=== PATIENT | female | born 1985 | race Hispanic/Latino ===

== ENCOUNTER → 2020-01-04 | Outpatient (CLI) | payer OTHER ==
[~2020-01-04] MED LIST: ACETAMINOPHEN 325 MG/10 ML UDC ONE; ACETAMINOPHEN/CODEINE 300MG - 30MG TAB ONE; PANTOPRAZOLE SOD 40 MG TABEC PO ONE
[2020-01-04 11:18] LABS: HEMOGLOBIN 12.2 g/dL (12.0-16.0)
[2020-01-04 11:27] LABS: INR 0.99; PROTHROMBIN TIME 13.7 seconds (11.9-14.5)
[2020-01-04 11:28] LABS: PARTIAL THROMBOPLASTIN TIME 27.4 seconds (23.8-35.5)
--- NOTE | 2020-01-04 13:32 | Diagnostic Imaging Report ---
PROCEDURE: Lumbar puncture Procedural Personnel Attending physician(s): Padma Whitehead MD Fellow physician(s): None Resident physician(s): None Advanced practice provider(s): None Pre-procedure diagnosis: Pseudotumor cerebri Post-procedure diagnosis: Same Indication: Headache Additional clinical history: None Complications: No immediate complications. IMPRESSION: Fluoroscopically guided lumbar puncture. Opening pressure of 17 mmHg. Fluid removed (total 30cc CSF) and sent for further analysis. PROCEDURE SUMMARY: - Fluoroscopically guided lumbar puncture at L3-4. - Opening pressure measured at 17 mmHg - 30cc CSF removed. - Closing pressure 4mmHg PROCEDURE DETAILS: Pre-procedure Consent: Informed consent for the procedure including risks, benefits and alternatives was obtained and time-out was performed prior to the procedure. Preparation: The site was prepared and draped using maximal sterile barrier technique including cutaneous antisepsis. Anesthesia/sedation Level of anesthesia/sedation: Local 1% lidocaine Lumbar Puncture [employer] images were obtained. Under image guidance and via a translaminar approach, a needle was advanced to the thecal space. Opening pressure was measured and CSF was obtained for further analysis. Target level: L3-4 Radiation Dose Fluoroscopy time (minutes): 0.7 Reference air kerma (mGy): 6.7 Additional Details Additional description of procedure: None Equipment details: None Specimens removed: CSF sent for labs. Estimated blood loss (mL): Less than 10 Attestation Signer name: Padma Whitehead MD I attest that I was present for the entire procedure. I reviewed the stored images and agree with the report as written. Signed by: Padma Whitehead MD on 01/04/2020 1:30 PM
[2020-01-04 14:50] LABS: TOTAL PROTEIN,CSF 20.5 mg/dL (15-40)
[2020-01-04 16:45] LABS: APPEARANCE,CSF CLEAR (CLEAR)
[2020-01-04 16:46] LABS: COLOR,CSF COLORLESS (COLORLESS); TUBE NUMBER 3; WHITE BLOOD CELL,CSF 1 cells/uL (0-5)
== END ==
LOC: DX 10:53
PROVIDERS: ATTEND Psychiatry & Neurology Neurology
DX: G93.2 Benign intracranial hypertension (principal)
CPT/HCPCS: 36415; 62328; 77003; 81025; 82945; 84157; 85014; 85049; 85610; 85730; 89051; S0164

== ENCOUNTER 2021-02-21 12:30 | Emergency (ER) | payer OTHER ==
[~2021-02-21] VITALS: Ht 157.5 cm; Wt 90.0 kg
[~2021-02-21 12:30] MED LIST changes: -ACETAMINOPHEN 325 MG/10 ML UDC ONE; -ACETAMINOPHEN/CODEINE 300MG - 30MG TAB ONE; +AMBIEN10 MG PO; +CLONAZEPAM0.5 MG PO; +GABAPENTIN300 MG PO; +LEVOTHYROXINE50 MCG PO; -PANTOPRAZOLE SOD 40 MG TABEC PO ONE; +ROPINIROLE HCL1 MG PO
[2021-02-21] MEDS ORDERED: KETOROLAC TROMETHAMINE 30 MG/ML VIAL IV STA (13:01)
[2021-02-21] MEDS ORDERED: ONDANSETRON HCL INJ 2MG/ML 2ML 2 MG/ML VIAL IV STA (13:01)
[2021-02-21] MEDS ORDERED: SODIUM CHLORIDE 0.9% 1000ML 1,000 ML IV SCH (13:15)
[2021-02-21] MEDS ORDERED: IOPAMIDOL 370 MG/ML 200 ML INFUS..BTL INJ ONE (13:20)
[2021-02-21] MEDS ORDERED: SODIUM CHLORIDE 0.9% 50ML 50 ML ONE (13:20)
[2021-02-21] MEDS ORDERED: KETOROLAC TROMETHAMINE 30 MG/ML VIAL ONE (13:32)
[2021-02-21] MEDS ORDERED: ONDANSETRON HCL INJ 2MG/ML 2ML 2 MG/ML VIAL ONE (13:32)
[2021-02-21] MEDS ORDERED: SODIUM CHLORIDE 0.9% 1000ML 1,000 ML ONE (13:33)
[2021-02-21] MEDS ORDERED: MORPHINE SULFATE INJ 4 MG/ML INJ 1ML IV ONE (14:15)
[2021-02-21] MEDS ORDERED: MORPHINE SULFATE INJ 4 MG/ML INJ 1ML ONE (14:32)
[2021-02-21] MEDS ORDERED: ONDANSETRON ODT4 MG PO (15:12)
[2021-02-21] MEDS ORDERED: ULTRAM50 MG PO (15:14)
== END 2021-02-21 15:42 | disposition home or self-care (01) ==
LOC: FSED 13:05
DX: R10.11 Right upper quadrant pain (principal); Z98.84 Bariatric surgery status; I10 Essential (primary) hypertension; E03.9 Hypothyroidism, unspecified; F41.9 Anxiety disorder, unspecified; G93.5 Compression of brain
CPT/HCPCS: 74177; 80048; 80076; 81003; 81025; 85025; 96374; 96375; 96376; 99284; J1885; J2270; J2405; J7030; Q9967

== ENCOUNTER 2021-03-21 17:25 | Inpatient (IN) | payer OTHER ==
[~2021-03-21] VITALS: Ht 157.5 cm; Wt 91.4 kg
[~2021-03-21 17:25] MED LIST changes: +ONDANSETRON ODT4 MG PO; +ULTRAM50 MG PO
[2021-03-21] MEDS ORDERED: KETOROLAC TROMETHAMINE 30 MG/ML VIAL IV STA (17:49)
[2021-03-21] MEDS ORDERED: CEFEPIME HCL 1GM 1 GM in SODIUM CHLORIDE 0.9% 50ML 50 ML IV ONE (18:00)
[2021-03-21] MEDS ORDERED: CEFEPIME HCL 1 GM VIAL IV ONE (18:00)
[2021-03-21] MEDS ORDERED: ACETAMINOPHEN 325 MG TAB PO ONE (18:00)
[2021-03-21] MEDS ORDERED: SODIUM CHLORIDE 0.9% 1000ML 1,000 ML IV ONE (18:00)
[2021-03-21 18:01] LABS: BASOPHILS # (AUTO) 0.1 (0.0-0.1); BASOPHILS % 0.6 % (0.0-1.0); EOSINOPHILS # (AUTO) 0.3 (0.0-0.4); EOSINOPHILS % 2.7 % (0.0-6.0); HEMATOCRIT 34.7 % (34.2-44.1); LYMPHOCYTES # (AUTO) 3.1 (1.0-3.2); LYMPHOCYTES % 24.3 % (18.0-39.1); MEAN CORPUSCULAR HEMOGLOBIN 24.8 pg (28-32); MEAN CORPUSCULAR HGB CONC 31.7 g/dL (31-35); MEAN CORPUSCULAR VOLUME 78.3 fL (81-99); MONOCYTES # (AUTO) 1.1 (0.2-0.8); MONOCYTES % 8.5 % (4.4-11.3); NEUTROPHILS % 63.4 % (38.7-80.0); PLATELET COUNT 444 x10e3/uL (140-360); RED BLOOD COUNT 4.43 x10e6/uL (3.6-5.1); RED CELL DISTRIBUTION WIDTH 15.2 % (11.7-14.4)
[2021-03-21 18:25] LABS: ALANINE AMINOTRANSFERASE 78 IU/L (0-55); ALBUMIN 3.9 g/dL (3.5-5.0); ALBUMIN/GLOBULIN RATIO 1.1 (0.8-2.0); ALKALINE PHOSPHATASE 160 IU/L (40-150); BLOOD UREA NITROGEN 15 mg/dL (7-26); BUN/CREATININE RATIO 19 (6-25); CALCIUM 8.6 mg/dL (8.4-10.2); CARBON DIOXIDE 21 mmol/L (22-29); CHLORIDE 105 mmol/L (98-107); CREATININE, SERUM 0.77 mg/dL (0.57-1.11); EST GLOMERULAR FILTRATION RATE > 60 ML/MIN (60-); GLUCOSE 91 mg/dL (74-118); SODIUM 136 mmol/L (136-145)
[2021-03-21] MEDS ORDERED: ONDANSETRON HCL INJ 2MG/ML 2ML 2 MG/ML VIAL IV STA (18:30)
[2021-03-21] MEDS ORDERED: MORPHINE SULFATE INJ 4 MG/ML INJ 1ML IV STA (18:45)
[2021-03-21] MEDS ORDERED: IOPAMIDOL 370 MG/ML 200 ML INFUS..BTL INJ ONE (18:55)
[2021-03-21] MEDS ORDERED: SODIUM CHLORIDE 0.9% 50ML 50 ML ONE (18:55)
[2021-03-21] MEDS ORDERED: ACETAMINOPHEN 325 MG TAB PO PRN (20:45)
[2021-03-21] MEDS ORDERED: ONDANSETRON HCL INJ 2MG/ML 2ML 2 MG/ML VIAL IV PRN (20:45)
[2021-03-21] MEDS ORDERED: MORPHINE SULFATE INJ 4 MG/ML INJ 1ML IV PRN (21:30)
[2021-03-21] MEDS ORDERED: SODIUM CHLORIDE 0.9% 250ML 250 ML ONE (21:54)
[2021-03-21 21:55] VITALS: BP 118/83
[2021-03-21 22:00] VITALS: BP 118/83
[2021-03-21] MEDS ORDERED: CEFEPIME HCL 1 GM VIAL IV SCH (22:00)
[2021-03-21] MEDS: VANCOMYCIN 1GM/NS 250 ML 250 ML IV SCH (22:00)
[2021-03-21] MEDS ORDERED: ZOLPIDEM TARTRATE 5 MG TAB PO PRN (22:30)
[2021-03-21] MEDS ORDERED: ROPINIROLE HCL 2 MG TAB PO SCH (22:45)
[2021-03-21 23:07] LABS: CLARITY,URINE CLEAR (CLEAR); COLOR,URINE YELLOW (YELLOW)
[2021-03-21 23:08] LABS: KETONES,URINE NEGATIVE (NEGATIVE); LEUKOCYTE ESTERASE ,URINE NEGATIVE (NEGATIVE); NITRITE,URINE NEGATIVE (NEGATIVE); PROTEIN,URINE DIPSTICK NEGATIVE (NEGATIVE); URINE UROBILINOGEN 0.2 mg/dL (0.2 - 1)
[2021-03-21] MEDS: SODIUM CHLORIDE 0.9% 1000ML 1,000 ML IV SCH (23:08)
[2021-03-21] MEDS: HYDROMORPHONE 1MG/1ML INJ IV PRN (23:11)
[2021-03-21 23:14] LABS: BACTERIA,URINE RARE /HPF; EPITHELIAL CELLS,URINE MODERATE /LPF; RBC,URINE 0-5 /HPF (0-5); WBC,URINE (MAN) 0-5 /HPF (0-5)
[2021-03-22] VITALS (9 sets, daily range): BP systolic 88–114; BP diastolic 54–75
[2021-03-22] MEDS: ZOLPIDEM TARTRATE 10 MG TAB PO PRN (01:30)
[2021-03-22] MEDS: HYDROMORPHONE 1MG/1ML INJ IV PRN ×4 (03:54→19:52)
[2021-03-22 05:04] LABS: BASOPHILS # (AUTO) 0.1 (0.0-0.1); BASOPHILS % 0.6 % (0.0-1.0); EOSINOPHILS # (AUTO) 0.5 (0.0-0.4); EOSINOPHILS % 5.9 % (0.0-6.0); HEMATOCRIT 31.2 % (34.2-44.1); HEMOGLOBIN 9.9 g/dL (12.0-16.0); LYMPHOCYTES # (AUTO) 2.8 (1.0-3.2); LYMPHOCYTES % 34.2 % (18.0-39.1); MEAN CORPUSCULAR HEMOGLOBIN 25.1 pg (28-32); MEAN CORPUSCULAR HGB CONC 31.7 g/dL (31-35); MEAN CORPUSCULAR VOLUME 79.2 fL (81-99); MONOCYTES # (AUTO) 0.6 (0.2-0.8); MONOCYTES % 7.5 % (4.4-11.3); NEUTROPHILS # (AUTO) 4.2 (2.1-6.9); NEUTROPHILS % 51.6 % (38.7-80.0); PLATELET COUNT 355 x10e3/uL (140-360); RED BLOOD COUNT 3.94 x10e6/uL (3.6-5.1); RED CELL DISTRIBUTION WIDTH 15.5 % (11.7-14.4)
[2021-03-22 05:25] LABS: ALANINE AMINOTRANSFERASE 57 IU/L (0-55); ALBUMIN 3.2 g/dL (3.5-5.0); ALBUMIN/GLOBULIN RATIO 1.1 (0.8-2.0); ALKALINE PHOSPHATASE 126 IU/L (40-150); ANION GAP 14.8 mmol/L (8-16); BLOOD UREA NITROGEN 13 mg/dL (7-26); BUN/CREATININE RATIO 18 (6-25); CARBON DIOXIDE 20 mmol/L (22-29); CHLORIDE 109 mmol/L (98-107); CREATININE, SERUM 0.74 mg/dL (0.57-1.11); EST GLOMERULAR FILTRATION RATE > 60 ML/MIN (60-); GLUCOSE 95 mg/dL (74-118); POTASSIUM 3.8 mmol/L (3.5-5.1); SODIUM 140 mmol/L (136-145)
[2021-03-22] MEDS: CEFEPIME HCL 1GM 1 GM in SODIUM CHLORIDE 0.9% 50ML 50 ML IV SCH ×3 (06:26→22:52)
[2021-03-22] MEDS: VANCOMYCIN 1GM/NS 250 ML 250 ML IV SCH ×2 (09:28→21:00)
[2021-03-22] MEDS: KETOROLAC TROMETHAMINE 30 MG/ML VIAL IV SCH ×3 (09:30→18:00)
[2021-03-22] MEDS ORDERED: CLONAZEPAM 0.5 MG TAB PO PRN (11:00)
[2021-03-22 11:22] LABS: BODY FLUID APPEARANCE TURBID; BODY FLUID COLOR RED; BODY FLUID TYPE SYNOVIAL
[2021-03-22 11:23] LABS: WBC,BODY FLUID 1540 cells/uL
[2021-03-22 12:46] LABS: EOSINOPHILS,BODY FLUID 8 %; LYMPHOCYTES,BODY FLUID 17 %; MONO/MACROPHG,BODY FLUID 8 %; NEUTROPHILS,BODY FLUID 67 %
[2021-03-22] MEDS: CLONAZEPAM 0.5 MG TAB PO PRN (13:38)
[2021-03-22] MEDS: GABAPENTIN 300 MG CAP PO SCH ×2 (15:15→21:00)
[2021-03-22] MEDS ORDERED: ROPINIROLE HCL 1 MG TAB PO SCH (21:00)
[2021-03-22] MEDS: ROPINIROLE HCL 2 MG TAB PO SCH (21:00)
[2021-03-22] MEDS: SODIUM CHLORIDE 0.9% 1000ML 1,000 ML IV SCH (22:52)
[2021-03-23] VITALS (8 sets, daily range): BP systolic 81–119; BP diastolic 61–85
[2021-03-23] MEDS: HYDROMORPHONE 1MG/1ML INJ IV PRN ×2 (02:15→06:15)
[2021-03-23] MEDS: CEFEPIME HCL 1GM 1 GM in SODIUM CHLORIDE 0.9% 50ML 50 ML IV SCH ×3 (05:25→22:30)
[2021-03-23] MEDS: KETOROLAC TROMETHAMINE 30 MG/ML VIAL IV SCH ×2 (05:26)
[2021-03-23] MEDS: LEVOTHYROXINE SODIUM 50 MCG TAB PO SCH (05:55)
[2021-03-23 06:33] LABS: BASOPHILS # (AUTO) 0.1 (0.0-0.1); BASOPHILS % 0.4 % (0.0-1.0); EOSINOPHILS # (AUTO) 0.4 (0.0-0.4); EOSINOPHILS % 3.5 % (0.0-6.0); HEMATOCRIT 32.9 % (34.2-44.1); HEMOGLOBIN 10.3 g/dL (12.0-16.0); LYMPHOCYTES # (AUTO) 2.6 (1.0-3.2); LYMPHOCYTES % 20.3 % (18.0-39.1); MEAN CORPUSCULAR HEMOGLOBIN 25.1 pg (28-32); MEAN CORPUSCULAR HGB CONC 31.3 g/dL (31-35); MONOCYTES # (AUTO) 0.6 (0.2-0.8); MONOCYTES % 5.1 % (4.4-11.3); NEUTROPHILS # (AUTO) 8.8 (2.1-6.9); NEUTROPHILS % 70.3 % (38.7-80.0); PLATELET COUNT 304 x10e3/uL (140-360); RED BLOOD COUNT 4.11 x10e6/uL (3.6-5.1)
[2021-03-23 06:56] LABS: ANION GAP 15.3 mmol/L (8-16); BLOOD UREA NITROGEN 10 mg/dL (7-26); BUN/CREATININE RATIO 15 (6-25); CALCIUM 8.4 mg/dL (8.4-10.2); CARBON DIOXIDE 19 mmol/L (22-29); CHLORIDE 110 mmol/L (98-107); CREATININE, SERUM 0.67 mg/dL (0.57-1.11); EST GLOMERULAR FILTRATION RATE > 60 ML/MIN (60-); GLUCOSE 90 mg/dL (74-118); POTASSIUM 4.3 mmol/L (3.5-5.1); SODIUM 140 mmol/L (136-145)
[2021-03-23] MEDS ORDERED: KETOROLAC TROMETHAMINE 30 MG/ML VIAL IV PRN (08:00)
[2021-03-23] MEDS: GABAPENTIN 300 MG CAP PO SCH ×3 (09:11→21:15)
[2021-03-23] MEDS: VANCOMYCIN 1GM/NS 250 ML 250 ML IV SCH ×2 (09:11→21:15)
[2021-03-23] MEDS: MORPHINE SULFATE INJ 2 MG/ML SYR IV PRN ×2 (12:08→18:00)
[2021-03-23] MEDS: CLONAZEPAM 0.5 MG TAB PO PRN (12:23)
[2021-03-23] MEDS: HYDROCODONE/APAP 5MG-325MG TAB PO PRN (21:15)
[2021-03-23] MEDS: ROPINIROLE HCL 2 MG TAB PO SCH (21:15)
[2021-03-24] VITALS: BP 109/68
[2021-03-24] MEDS: MORPHINE SULFATE INJ 2 MG/ML SYR IV PRN ×3 (00:20→12:36)
[2021-03-24] MEDS: ZOLPIDEM TARTRATE 10 MG TAB PO PRN (01:45)
[2021-03-24] MEDS: CLONAZEPAM 0.5 MG TAB PO PRN (01:45)
[2021-03-24] MEDS: HYDROCODONE/APAP 5MG-325MG TAB PO PRN ×2 (03:45→09:41)
[2021-03-24 04:00] VITALS: BP 105/73
[2021-03-24 06:15] LABS: BASOPHILS % 0.5 % (0.0-1.0); EOSINOPHILS # (AUTO) 0.5 (0.0-0.4); EOSINOPHILS % 5.8 % (0.0-6.0); HEMATOCRIT 30.3 % (34.2-44.1); HEMOGLOBIN 9.4 g/dL (12.0-16.0); LYMPHOCYTES # (AUTO) 2.7 (1.0-3.2); LYMPHOCYTES % 32.1 % (18.0-39.1); MEAN CORPUSCULAR HEMOGLOBIN 25.1 pg (28-32); MEAN CORPUSCULAR VOLUME 80.8 fL (81-99); MONOCYTES # (AUTO) 0.8 (0.2-0.8); MONOCYTES % 9.7 % (4.4-11.3); NEUTROPHILS # (AUTO) 4.3 (2.1-6.9); NEUTROPHILS % 51.5 % (38.7-80.0); PLATELET COUNT 362 x10e3/uL (140-360); RED BLOOD COUNT 3.75 x10e6/uL (3.6-5.1); RED CELL DISTRIBUTION WIDTH 16.1 % (11.7-14.4)
[2021-03-24] MEDS: CEFEPIME HCL 1GM 1 GM in SODIUM CHLORIDE 0.9% 50ML 50 ML IV SCH ×2 (06:30→13:51)
[2021-03-24] MEDS: LEVOTHYROXINE SODIUM 50 MCG TAB PO SCH (06:30)
[2021-03-24 06:36] LABS: ANION GAP 9.8 mmol/L (8-16); BLOOD UREA NITROGEN 11 mg/dL (7-26); BUN/CREATININE RATIO 17 (6-25); CALCIUM 7.8 mg/dL (8.4-10.2); CARBON DIOXIDE 22 mmol/L (22-29); CHLORIDE 113 mmol/L (98-107); CREATININE, SERUM 0.63 mg/dL (0.57-1.11); EST GLOMERULAR FILTRATION RATE > 60 ML/MIN (60-); GLUCOSE 84 mg/dL (74-118); POTASSIUM 3.8 mmol/L (3.5-5.1); SODIUM 141 mmol/L (136-145)
[2021-03-24 08:16] VITALS: BP 116/78
[2021-03-24 09:06] VITALS: BP 116/78
[2021-03-24] MEDS: GABAPENTIN 300 MG CAP PO SCH (09:40)
[2021-03-24] MEDS: VANCOMYCIN 1GM/NS 250 ML 250 ML IV SCH (09:40)
[2021-03-24 12:12] VITALS: BP 115/72
[2021-03-24] MEDS ORDERED: BACTRIM DS TAB1 EACH PO (12:40)
[2021-03-24] MEDS ORDERED: TYLENOL # 31 EA PO ×2 (12:40→12:42)
== END 2021-03-24 14:45 | disposition home or self-care (01) | DRG 558 ==
LOC: ER 17:49 → ERHOLD 20:34 → MED/SURG3 21:28 → OBSVTOIN 03-22 09:19
PROVIDERS: ADMIT Internal Medicine; ATTEND Internal Medicine
PROC: 0R9L3ZX Drainage of Right Elbow Joint, Percutaneous Approach, Diagnostic (ICD-10-PCS; principal; 2021-03-22)
DX: M71.121 Other infective bursitis, right elbow (principal); L03.113 Cellulitis of right upper limb; I10 Essential (primary) hypertension; E03.9 Hypothyroidism, unspecified; F41.9 Anxiety disorder, unspecified; Z88.8 Allergy status to other drugs, medicaments and biological substances; G25.81 Restless legs syndrome; F32.9 Major depressive disorder, single episode, unspecified; E66.9 Obesity, unspecified; Z68.36 Body mass index [BMI] 36.0-36.9, adult; Z83.3 Family history of diabetes mellitus; Z84.89 Family history of other specified conditions; Z72.0 Tobacco use; Z20.822 Contact with and (suspected) exposure to COVID-19
CPT/HCPCS: 36415; 71045; 80048; 80053; 80202; 81001; 83605; 84702; 85025; 85651; 86140; 87040; 87070; 87205; 89051; 99284; G0378; J0692; J1170; J1885; J2270; J2405; J3370; J7030; J7050; Q9967; U0002

== ENCOUNTER 2021-03-25 20:01 | Observation (INO) | payer OTHER ==
[~2021-03-25] VITALS: Ht 157.5 cm; Wt 93.0 kg
[~2021-03-25 20:01] MED LIST changes: +BACTRIM DS TAB1 EACH PO; +TYLENOL # 31 EA PO
[2021-03-25 21:51] LABS: BASOPHILS # (AUTO) 0.1 (0.0-0.1); BASOPHILS % 0.5 % (0.0-1.0); EOSINOPHILS # (AUTO) 0.5 (0.0-0.4); EOSINOPHILS % 3.1 % (0.0-6.0); HEMATOCRIT 33.6 % (34.2-44.1); HEMOGLOBIN 10.4 g/dL (12.0-16.0); LYMPHOCYTES # (AUTO) 2.6 (1.0-3.2); LYMPHOCYTES % 16.6 % (18.0-39.1); MEAN CORPUSCULAR VOLUME 80.8 fL (81-99); MONOCYTES # (AUTO) 1.2 (0.2-0.8); MONOCYTES % 7.8 % (4.4-11.3); NEUTROPHILS # (AUTO) 11.1 (2.1-6.9); NEUTROPHILS % 71.6 % (38.7-80.0); PLATELET COUNT 415 x10e3/uL (140-360); RED BLOOD COUNT 4.16 x10e6/uL (3.6-5.1)
[2021-03-25 22:05] LABS: ALANINE AMINOTRANSFERASE 36 IU/L (0-55); ALBUMIN 3.6 g/dL (3.5-5.0); ALBUMIN/GLOBULIN RATIO 1.1 (0.8-2.0); ALKALINE PHOSPHATASE 121 IU/L (40-150); ANION GAP 14.5 mmol/L (8-16); BLOOD UREA NITROGEN 10 mg/dL (7-26); BUN/CREATININE RATIO 13 (6-25); CALCIUM 8.7 mg/dL (8.4-10.2); CARBON DIOXIDE 25 mmol/L (22-29); CHLORIDE 102 mmol/L (98-107); EST GLOMERULAR FILTRATION RATE > 60 ML/MIN (60-); GLUCOSE 88 mg/dL (74-118); POTASSIUM 4.5 mmol/L (3.5-5.1); SODIUM 137 mmol/L (136-145)
[2021-03-25] MEDS ORDERED: VANCOMYCIN 1GM/NS 250 ML 250 ML IV STA (22:22)
[2021-03-25] MEDS ORDERED: CEFEPIME HCL 1GM 1 GM in SODIUM CHLORIDE 0.9% 50ML 50 ML IV ONE (22:30)
[2021-03-25] MEDS ORDERED: CEFEPIME HCL 1 GM VIAL IV SCH (22:30)
[2021-03-25] MEDS ORDERED: SODIUM CHLORIDE 0.9% 1000ML 1,000 ML IV SCH (22:30)
[2021-03-25 22:44] LABS: CREATINE KINASE 542 IU/L (29-168)
[2021-03-25] MEDS ORDERED: ACETAMINOPHEN 325 MG TAB ONE (23:15)
[2021-03-26] MEDS ORDERED: TRAMADOL HCL 50 MG TAB PO ONE (01:00)
[2021-03-26] MEDS ORDERED: ONDANSETRON HCL INJ 2MG/ML 2ML 2 MG/ML VIAL IV STA (02:11)
[2021-03-26] MEDS ORDERED: MORPHINE SULFATE INJ 4 MG/ML INJ 1ML IV STA (02:17)
[2021-03-26 03:28] LABS: AMPHETAMINES SCREEN,URINE NEGATIVE (NEGATIVE); BENZODIAZEPINES SCREEN,URINE POSITIVE (NEGATIVE); PHENCYCLIDINE SCREEN,URINE NEGATIVE (NEGATIVE)
[2021-03-26 06:39] LABS: BASOPHILS # (AUTO) 0.1 (0.0-0.1); BASOPHILS % 0.5 % (0.0-1.0); EOSINOPHILS # (AUTO) 0.7 (0.0-0.4); EOSINOPHILS % 6.3 % (0.0-6.0); HEMATOCRIT 31.5 % (34.2-44.1); HEMOGLOBIN 9.6 g/dL (12.0-16.0); LYMPHOCYTES # (AUTO) 3.6 (1.0-3.2); LYMPHOCYTES % 32.3 % (18.0-39.1); MEAN CORPUSCULAR HEMOGLOBIN 24.9 pg (28-32); MEAN CORPUSCULAR HGB CONC 30.5 g/dL (31-35); MEAN CORPUSCULAR VOLUME 81.6 fL (81-99); MONOCYTES # (AUTO) 0.8 (0.2-0.8); MONOCYTES % 6.9 % (4.4-11.3); NEUTROPHILS # (AUTO) 5.9 (2.1-6.9); NEUTROPHILS % 53.6 % (38.7-80.0); PLATELET COUNT 393 x10e3/uL (140-360); RED BLOOD COUNT 3.86 x10e6/uL (3.6-5.1); RED CELL DISTRIBUTION WIDTH 16.1 % (11.7-14.4)
[2021-03-26] MEDS ORDERED: SODIUM CHLORIDE 0.9% 1000ML 1,000 ML IV ONE (06:45)
[2021-03-26 06:57] LABS: CREATINE KINASE 452 IU/L (29-168)
[2021-03-26] MEDS ORDERED: ACETAMINOPHEN 325 MG TAB PO PRN (07:15)
[2021-03-26] MEDS ORDERED: HYDRALAZINE HCL 20 MG/ML VIAL IV PRN (07:15)
[2021-03-26] MEDS ORDERED: ONDANSETRON HCL INJ 2MG/ML 2ML 2 MG/ML VIAL IV PRN (07:15)
[2021-03-26] MEDS ORDERED: TRAMADOL HCL 50 MG TAB PO PRN (07:15)
[2021-03-26 07:21] LABS: ALANINE AMINOTRANSFERASE 33 IU/L (0-55); ALBUMIN 3.2 g/dL (3.5-5.0); ALKALINE PHOSPHATASE 109 IU/L (40-150); ANION GAP 12.7 mmol/L (8-16); BLOOD UREA NITROGEN 10 mg/dL (7-26); BUN/CREATININE RATIO 12 (6-25); CALCIUM 8.8 mg/dL (8.4-10.2); CARBON DIOXIDE 24 mmol/L (22-29); CHLORIDE 110 mmol/L (98-107); CREATININE, SERUM 0.83 mg/dL (0.57-1.11); EST GLOMERULAR FILTRATION RATE > 60 ML/MIN (60-); GLUCOSE 92 mg/dL (74-118); POTASSIUM 5.7 mmol/L (3.5-5.1); SODIUM 141 mmol/L (136-145)
[2021-03-26] MEDS: LEVOTHYROXINE SODIUM 50 MCG TAB PO SCH (08:03)
[2021-03-26] MEDS: GABAPENTIN 300 MG CAP PO SCH ×3 (08:03→20:49)
[2021-03-26] MEDS: SODIUM CHLORIDE 0.9% 1000ML 1,000 ML IV SCH ×3 (10:33→23:05)
[2021-03-26] MEDS: CEFEPIME HCL 1GM 1 GM in SODIUM CHLORIDE 0.9% 50ML 50 ML IV SCH ×2 (12:00→23:04)
[2021-03-26] MEDS ORDERED: HYDROMORPHONE 1MG/1ML INJ IV PRN (12:15)
[2021-03-26 13:16] VITALS: BP 102/69
[2021-03-26 13:19] VITALS: BP 102/69
[2021-03-26] MEDS ORDERED: TIZANIDINE HCL4 MG PO (13:53)
[2021-03-26] MEDS ORDERED: TRILEPTAL300 MG PO (13:53)
[2021-03-26 15:14] LABS: CREATINE KINASE 444 IU/L (29-168)
[2021-03-26 16:17] VITALS: BP 113/70
[2021-03-26] MEDS ORDERED: HYDROCORTISONE 1% CREAM 30 GM TUBE TOP PRN (17:30)
[2021-03-26] MEDS: ACETAMINOPHEN/CODEINE 300MG - 30MG TAB PO PRN (19:47)
[2021-03-26 20:00] VITALS: BP 114/71
[2021-03-26 20:30] VITALS: BP 114/71
[2021-03-26] MEDS ORDERED: CLONAZEPAM 0.5 MG TAB PO PRN (21:00)
[2021-03-26] MEDS ORDERED: ROPINIROLE HCL 1 MG TAB PO SCH (21:00)
[2021-03-26] MEDS ORDERED: ZOLPIDEM TARTRATE 10 MG TAB PO SCH (21:00)
[2021-03-27] VITALS: BP 111/72
[2021-03-27 04:00] VITALS: BP 116/70
[2021-03-27] MEDS: ACETAMINOPHEN/CODEINE 300MG - 30MG TAB PO PRN ×2 (05:05→11:49)
[2021-03-27] MEDS: LEVOTHYROXINE SODIUM 50 MCG TAB PO SCH (05:19)
[2021-03-27 05:30] LABS: BASOPHILS % 0.6 % (0.0-1.0); EOSINOPHILS # (AUTO) 0.7 (0.0-0.4); EOSINOPHILS % 9.3 % (0.0-6.0); HEMOGLOBIN 9.6 g/dL (12.0-16.0); LYMPHOCYTES # (AUTO) 2.1 (1.0-3.2); LYMPHOCYTES % 29.7 % (18.0-39.1); MEAN CORPUSCULAR HEMOGLOBIN 24.6 pg (28-32); MEAN CORPUSCULAR VOLUME 79.5 fL (81-99); MONOCYTES # (AUTO) 0.7 (0.2-0.8); MONOCYTES % 9.1 % (4.4-11.3); NEUTROPHILS # (AUTO) 3.7 (2.1-6.9); PLATELET COUNT 357 x10e3/uL (140-360); RED CELL DISTRIBUTION WIDTH 15.9 % (11.7-14.4)
[2021-03-27 06:03] LABS: ALANINE AMINOTRANSFERASE 24 IU/L (0-55); ALKALINE PHOSPHATASE 98 IU/L (40-150); ANION GAP 12.4 mmol/L (8-16); BLOOD UREA NITROGEN 10 mg/dL (7-26); BUN/CREATININE RATIO 15 (6-25); CALCIUM 8.2 mg/dL (8.4-10.2); CARBON DIOXIDE 20 mmol/L (22-29); CHLORIDE 113 mmol/L (98-107); CREATINE KINASE 281 IU/L (29-168); CREATININE, SERUM 0.67 mg/dL (0.57-1.11); EST GLOMERULAR FILTRATION RATE > 60 ML/MIN (60-); GLUCOSE 91 mg/dL (74-118); POTASSIUM 4.4 mmol/L (3.5-5.1); SODIUM 141 mmol/L (136-145)
[2021-03-27 07:51] VITALS: BP 111/74
[2021-03-27 08:44] VITALS: BP 111/74
[2021-03-27] MEDS: GABAPENTIN 300 MG CAP PO SCH (09:09)
[2021-03-27] MEDS ORDERED: DOXYCYCLINE HY100 MG PO (11:35)
[2021-03-27] MEDS ORDERED: CIPRO500 MG PO (11:35)
[2021-03-27] MEDS: CEFEPIME HCL 1GM 1 GM in SODIUM CHLORIDE 0.9% 50ML 50 ML IV SCH (11:47)
[2021-03-27 12:01] VITALS: BP 118/75
[2021-03-27] MEDS ORDERED: TYLENOL PO (12:25)
[2021-03-27] MEDS ORDERED: ONDANSETRON HCL 4 MG ORAL DISINTEGRATING TAB PO PRN (12:30)
== END 2021-03-27 13:10 | disposition home or self-care (01) ==
LOC: ER 20:59 → ERHOLD 22:38 → MED/SURG3 03-26 13:00
PROVIDERS: ADMIT Internal Medicine; ATTEND Internal Medicine
DX: A41.9 Sepsis, unspecified organism (principal); L03.113 Cellulitis of right upper limb; Z20.822 Contact with and (suspected) exposure to COVID-19; E03.9 Hypothyroidism, unspecified; G25.81 Restless legs syndrome; M71.121 Other infective bursitis, right elbow
CPT/HCPCS: 36415 ×3; 71045; 80053 ×3; 80307; 82550 ×3; 82553 ×2; 83605; 84484 ×2; 85025 ×3; 87040; 99284; G0378 ×3; J0692 ×3; J1170; J2270; J2405; J3370; J7030 ×2; U0002

== ENCOUNTER 2021-04-24 21:20 | Emergency (ER) | payer OTHER ==
[~2021-04-24] VITALS: Ht 157.5 cm; Wt 93.0 kg
[~2021-04-24 21:20] MED LIST changes: +CIPRO500 MG PO; +DOXYCYCLINE HY100 MG PO; +TIZANIDINE HCL4 MG PO; +TRILEPTAL300 MG PO; +TYLENOL PO
[2021-04-24] MEDS ORDERED: SODIUM CHLORIDE 0.9% 1000ML 1,000 ML IV ONE (21:45)
[2021-04-24 22:01] LABS: BASOPHILS # (AUTO) 0.1 (0.0-0.1); BASOPHILS % 0.5 % (0.0-1.0); EOSINOPHILS # (AUTO) 0.6 (0.0-0.4); EOSINOPHILS % 5.1 % (0.0-6.0); HEMATOCRIT 33.8 % (34.2-44.1); HEMOGLOBIN 10.6 g/dL (12.0-16.0); LYMPHOCYTES # (AUTO) 2.3 (1.0-3.2); LYMPHOCYTES % 19.2 % (18.0-39.1); MEAN CORPUSCULAR HGB CONC 31.4 g/dL (31-35); MEAN CORPUSCULAR VOLUME 76.5 fL (81-99); MONOCYTES # (AUTO) 0.8 (0.2-0.8); MONOCYTES % 6.7 % (4.4-11.3); NEUTROPHILS # (AUTO) 8.1 (2.1-6.9); NEUTROPHILS % 66.5 % (38.7-80.0); PLATELET COUNT 458 x10e3/uL (140-360); RED BLOOD COUNT 4.42 x10e6/uL (3.6-5.1); RED CELL DISTRIBUTION WIDTH 17.2 % (11.7-14.4)
[2021-04-24 22:17] LABS: ALBUMIN 3.4 g/dL (3.5-5.0); ALBUMIN/GLOBULIN RATIO 0.7 (0.8-2.0); ANION GAP 15.8 mmol/L (8-16); CALCIUM 9.6 mg/dL (8.4-10.2); CREATININE, SERUM 0.83 mg/dL (0.57-1.11); POTASSIUM 3.8 mmol/L (3.5-5.1)
[2021-04-24 22:18] LABS: CLARITY,URINE CLEAR (CLEAR); COLOR,URINE YELLOW (YELLOW); KETONES,URINE 1+ (NEGATIVE); LEUKOCYTE ESTERASE ,URINE NEGATIVE (NEGATIVE); NITRITE,URINE NEGATIVE (NEGATIVE); PROTEIN,URINE DIPSTICK TRACE (NEGATIVE); URINE UROBILINOGEN 1 mg/dL (0.2 - 1)
[2021-04-24 22:34] LABS: BACTERIA,URINE RARE /HPF; EPITHELIAL CELLS,URINE FEW /LPF; RBC,URINE 0-5 /HPF (0-5); WBC,URINE (MAN) 0-5 /HPF (0-5)
[2021-04-24] MEDS ORDERED: TRAMADOL HCL 50 MG TAB PO ONE (23:15)
[2021-04-24] MEDS ORDERED: DOXYCYCLINE HY100 MG PO (23:52)
[2021-04-24] MEDS ORDERED: ULTRAM50 MG PO (23:52)
== END 2021-04-25 00:01 | disposition home or self-care (01) ==
LOC: ER 21:44
DX: R50.9 Fever, unspecified (principal); R06.00 Dyspnea, unspecified; R05 Cough; J18.9 Pneumonia, unspecified organism; Z20.822 Contact with and (suspected) exposure to COVID-19
CPT/HCPCS: 36415; 71045; 80053; 81001; 81025; 83605; 85025; 87040; 99284; J7030; U0002

== ENCOUNTER 2022-02-20 15:50 | Observation (INO) | payer OTHER ==
[~2022-02-20] VITALS: Ht 157.5 cm; Wt 79.4 kg
[2022-02-20] MEDS ORDERED: Morphine 4mg Syringe 4 MG/ML INJ IV STA (16:02)
[2022-02-20] MEDS ORDERED: SODIUM CHLORIDE 0.9% 1000ML 1,000 ML IV STA (16:02)
[2022-02-20] MEDS ORDERED: ONDANSETRON HCL INJ 2MG/ML 2ML 2 MG/ML VIAL IV STA (16:02)
[2022-02-20] MEDS ORDERED: DEXAMETHASONE SOD PHOS 10 MG/1 ML VIAL IV ONE (16:15)
[2022-02-20 16:28] LABS: BASOPHILS # (AUTO) 0.1 (0.0-0.1); BASOPHILS % 0.3 % (0.0-1.0); EOSINOPHILS % 0.1 % (0.0-6.0); HEMATOCRIT 42.1 % (34.2-44.1); HEMOGLOBIN 14.2 g/dL (12.0-16.0); LYMPHOCYTES # (AUTO) 1.6 (1.0-3.2); MEAN CORPUSCULAR HEMOGLOBIN 31.1 pg (28-32); MEAN CORPUSCULAR HGB CONC 33.7 g/dL (31-35); MEAN CORPUSCULAR VOLUME 92.3 fL (81-99); MONOCYTES # (AUTO) 0.3 (0.2-0.8); MONOCYTES % 1.7 % (4.4-11.3); NEUTROPHILS # (AUTO) 12.4 (2.1-6.9); NEUTROPHILS % 86.4 % (38.7-80.0); PLATELET COUNT 395 x10e3/uL (140-360); RED BLOOD COUNT 4.56 x10e6/uL (3.6-5.1); RED CELL DISTRIBUTION WIDTH 14.9 % (11.7-14.4)
[2022-02-20 16:42] LABS: ALBUMIN 3.9 g/dL (3.5-5.0); ALBUMIN/GLOBULIN RATIO 1.1 (0.8-2.0); CALCIUM 8.9 mg/dL (8.4-10.2); CREATININE, SERUM 0.84 mg/dL (0.57-1.11)
[2022-02-20] MEDS ORDERED: ACETAMINOPHEN 325 MG TAB PO ONE (17:45)
[2022-02-20 17:55] LABS: CLARITY,URINE SL CLOUDY (CLEAR); COLOR,URINE STRAW (YELLOW); KETONES,URINE TRACE (NEGATIVE); LEUKOCYTE ESTERASE ,URINE NEGATIVE (NEGATIVE); NITRITE,URINE NEGATIVE (NEGATIVE); PROTEIN,URINE DIPSTICK NEGATIVE (NEGATIVE); URINE UROBILINOGEN 0.2 mg/dL (0.2 - 1)
[2022-02-20 18:08] LABS: AMORPHOUS SEDIMENT,URINE MODERATE (FEW); BACTERIA,URINE MODERATE /HPF; EPITHELIAL CELLS,URINE MODERATE /LPF
[2022-02-20] MEDS ORDERED: Morphine 4mg Syringe 4 MG/ML INJ IV PRN (18:15)
[2022-02-20] MEDS ORDERED: ACETAMINOPHEN 325 MG TAB PO PRN (18:15)
[2022-02-20] MEDS ORDERED: ONDANSETRON HCL INJ 2MG/ML 2ML 2 MG/ML VIAL IV PRN (18:15)
[2022-02-20 18:27] LABS: CREATINE KINASE 67 IU/L (29-168)
[2022-02-20 19:00] VITALS: BP 121/82
[2022-02-20] MEDS ORDERED: VALIUM5 MG PO (19:07)
[2022-02-20] MEDS ORDERED: HYDROCODON-ACE1 EA11 PO (19:07)
[2022-02-20 20:00] VITALS: BP 121/82
[2022-02-20] MEDS ORDERED: LEVOTHYROXINE75 MCG PO (20:04)
[2022-02-20] MEDS ORDERED: ROPINIROLE HCL1 MG PO (20:16)
[2022-02-20] MEDS ORDERED: ONDANSETRON HCL 4 MG ORAL DISINTEGRATING TAB PO PRN (20:30)
[2022-02-20] MEDS ORDERED: HYDROCODONE/APAP 5MG-325MG TAB PO PRN (20:30)
[2022-02-20 21:00] VITALS: BP 121/82
[2022-02-20] MEDS ORDERED: OXCARBAZEPINE 300 MG TAB PO SCH (21:00)
[2022-02-20] MEDS ORDERED: ROPINIROLE HCL 1 MG TAB PO SCH (21:00)
[2022-02-20] MEDS ORDERED: ZOLPIDEM TARTRATE 5 MG TAB PO SCH (21:18)
[2022-02-20] MEDS: SODIUM CHLORIDE 0.9% 1000ML 1,000 ML IV SCH (21:29)
[2022-02-20] MEDS: DIAZEPAM 5 MG TAB PO SCH (21:30)
[2022-02-20] MEDS: GABAPENTIN 300 MG CAP PO SCH (21:30)
[2022-02-20] MEDS: HYDROMORPHONE 1MG/1ML INJ IV PRN (21:30)
[2022-02-20] MEDS: TIZANIDINE HCL 4 MG TAB PO SCH (23:58)
[2022-02-21] VITALS: BP_SYST 121; BP_SYST 165; BP_DIAS 69; BP_DIAS 91
[2022-02-21] MEDS: HYDROMORPHONE 1MG/1ML INJ IV PRN ×2 (01:30→05:30)
[2022-02-21 04:00] VITALS: BP 129/86
[2022-02-21] MEDS: GABAPENTIN 300 MG CAP PO SCH (05:43)
[2022-02-21 05:48] LABS: BASOPHILS % 0.3 % (0.0-1.0); EOSINOPHILS % 0.2 % (0.0-6.0); HEMATOCRIT 35.2 % (34.2-44.1); LYMPHOCYTES # (AUTO) 2.5 (1.0-3.2); LYMPHOCYTES % 23.6 % (18.0-39.1); MEAN CORPUSCULAR HEMOGLOBIN 30.9 pg (28-32); MEAN CORPUSCULAR HGB CONC 33.5 g/dL (31-35); MEAN CORPUSCULAR VOLUME 92.1 fL (81-99); MONOCYTES # (AUTO) 0.7 (0.2-0.8); MONOCYTES % 6.4 % (4.4-11.3); NEUTROPHILS # (AUTO) 7.2 (2.1-6.9); PLATELET COUNT 305 x10e3/uL (140-360); RED BLOOD COUNT 3.82 x10e6/uL (3.6-5.1); RED CELL DISTRIBUTION WIDTH 14.7 % (11.7-14.4)
[2022-02-21 05:59] LABS: HEMOGLOBIN 11.8 g/dL (12.0-16.0)
[2022-02-21] MEDS ORDERED: LEVOTHYROXINE SODIUM 75 MCG TAB PO SCH (06:00)
[2022-02-21] MEDS: SODIUM CHLORIDE 0.9% 1000ML 1,000 ML IV SCH (06:17)
[2022-02-21 06:20] LABS: ALBUMIN/GLOBULIN RATIO 1.2 (0.8-2.0); ANION GAP 10.9 mmol/L (8-16); CALCIUM 7.9 mg/dL (8.4-10.2); CREATININE, SERUM 0.65 mg/dL (0.57-1.11); POTASSIUM 3.9 mmol/L (3.5-5.1)
[2022-02-21 06:50] LABS: CREATINE KINASE 44 IU/L (29-168)
[2022-02-21] MEDS ORDERED: PREDNISONE20 MG PO (08:48)
[2022-02-21 08:49] VITALS: BP 120/81
[2022-02-21] MEDS: DIAZEPAM 5 MG TAB PO SCH (08:50)
[2022-02-21] MEDS: TIZANIDINE HCL 4 MG TAB PO SCH (08:51)
[2022-02-21 09:00] VITALS: BP 120/81
[2022-02-21] MEDS ORDERED: ONDANSETRON HCL 4 MG ORAL DISINTEGRATING TAB PO PRN (10:15)
[2022-02-21] MEDS ORDERED: ROPINIROLE HCL 1 MG TAB PO SCH ×3 (12:00→21:00)
== END 2022-02-21 11:32 | disposition home or self-care (01) ==
LOC: ER 16:33 → ERHOLD 18:07 → MED/SURG2 18:34
PROVIDERS: ADMIT Internal Medicine; ATTEND Internal Medicine
DX: M06.9 Rheumatoid arthritis, unspecified (principal); I10 Essential (primary) hypertension; Z98.84 Bariatric surgery status; Z88.8 Allergy status to other drugs, medicaments and biological substances; E03.9 Hypothyroidism, unspecified; F41.9 Anxiety disorder, unspecified; F32.A Depression, unspecified; Z90.49 Acquired absence of other specified parts of digestive tract; F17.210 Nicotine dependence, cigarettes, uncomplicated; Z83.3 Family history of diabetes mellitus; Z80.9 Family history of malignant neoplasm, unspecified; Z20.822 Contact with and (suspected) exposure to COVID-19
CPT/HCPCS: 36415 ×2; 71045; 71250; 80053 ×2; 81001; 81025; 82550 ×2; 82553 ×2; 83605; 83880; 84484 ×2; 84550; 85025 ×2; 85651; 86141; 86200; 86431; 87040; 94799; 99284; G0378 ×2; J1100; J1170 ×2; J2270; J2405; J2543 ×2; J7030 ×2; U0002

== ENCOUNTER 2022-03-17 13:42 | Inpatient (IN) | payer OTHER ==
[~2022-03-17] VITALS: Ht 157.5 cm; Wt 79.4 kg
[~2022-03-17 13:42] MED LIST changes: +HYDROCODON-ACE1 EA11 PO; +LEVOTHYROXINE75 MCG PO; +PREDNISONE20 MG PO; +VALIUM5 MG PO
[2022-03-17 14:02] LABS: BASOPHILS # (AUTO) 0.1 (0.0-0.1); BASOPHILS % 0.6 % (0.0-1.0); EOSINOPHILS # (AUTO) 0.4 (0.0-0.4); EOSINOPHILS % 4.4 % (0.0-6.0); HEMATOCRIT 41.6 % (34.2-44.1); HEMOGLOBIN 13.5 g/dL (12.0-16.0); LYMPHOCYTES # (AUTO) 3.2 (1.0-3.2); LYMPHOCYTES % 32.9 % (18.0-39.1); MEAN CORPUSCULAR HEMOGLOBIN 30.8 pg (28-32); MEAN CORPUSCULAR HGB CONC 32.5 g/dL (31-35); MONOCYTES # (AUTO) 0.8 (0.2-0.8); MONOCYTES % 7.9 % (4.4-11.3); NEUTROPHILS # (AUTO) 5.2 (2.1-6.9); PLATELET COUNT 326 x10e3/uL (140-360); RED BLOOD COUNT 4.38 x10e6/uL (3.6-5.1); RED CELL DISTRIBUTION WIDTH 14.9 % (11.7-14.4)
[2022-03-17 14:21] LABS: ALBUMIN 3.7 g/dL (3.5-5.0); ALBUMIN/GLOBULIN RATIO 1.2 (0.8-2.0); ANION GAP 13.8 mmol/L (8-16); CALCIUM 8.1 mg/dL (8.4-10.2); CLARITY,URINE SL CLOUDY (CLEAR); COLOR,URINE AMBER (YELLOW); CREATININE, SERUM 0.88 mg/dL (0.57-1.11); KETONES,URINE TRACE (NEGATIVE); LEUKOCYTE ESTERASE ,URINE SMALL (NEGATIVE); NITRITE,URINE NEGATIVE (NEGATIVE); POTASSIUM 3.8 mmol/L (3.5-5.1); PROTEIN,URINE DIPSTICK 1+ (NEGATIVE); URINE UROBILINOGEN 0.2 mg/dL (0.2 - 1)
[2022-03-17 14:34] LABS: BACTERIA,URINE MANY /HPF; EPITHELIAL CELLS,URINE MODERATE /LPF
[2022-03-17] MEDS: Morphine 4mg Syringe 4 MG/ML INJ IV PRN ×2 (18:41→23:10)
[2022-03-17] MEDS: ONDANSETRON HCL INJ 2MG/ML 2ML 2 MG/ML VIAL IV PRN (18:41)
[2022-03-17] MEDS ORDERED: SODIUM CHLORIDE 0.9% 1000ML 1,000 ML ONE (18:42)
[2022-03-17] MEDS ORDERED: ONDANSETRON HCL INJ 2MG/ML 2ML 2 MG/ML VIAL ONE (18:42)
[2022-03-17] MEDS ORDERED: Morphine 4mg Syringe 4 MG/ML INJ ONE (18:42)
[2022-03-17 20:00] VITALS: BP 109/64
[2022-03-17 22:00] VITALS: BP 109/64
[2022-03-17] MEDS ORDERED: HYDROCODON-ACE1 EAC9 PO (22:49)
[2022-03-17] MEDS ORDERED: DICLOFENAC SODI50 MG PO (23:47)
[2022-03-17] MEDS ORDERED: DECADRON4 M1 PO (23:47)
[2022-03-17] MEDS ORDERED: FUROSEMIDE40 MG PO (23:47)
[2022-03-17] MEDS ORDERED: ALPRAZOLAM0.25 MG PO (23:47)
[2022-03-17 23:55] VITALS: BP 109/64
[2022-03-18] VITALS (7 sets, daily range): BP systolic 102–118; BP diastolic 64–83
[2022-03-18] MEDS ORDERED: IBUPROFEN 600 MG TAB PO PRN (00:45)
[2022-03-18] MEDS ORDERED: HYDRALAZINE HCL 20 MG/ML VIAL IV PRN (00:45)
[2022-03-18] MEDS ORDERED: ACETAMINOPHEN 325 MG TAB PO PRN (00:45)
[2022-03-18] MEDS ORDERED: ONDANSETRON HCL 4 MG ORAL DISINTEGRATING TAB PO PRN (00:45)
[2022-03-18] MEDS ORDERED: POLYETHYLENE GLYCOL 3350 17 GM PACK PO PRN (00:45)
[2022-03-18] MEDS ORDERED: ACETAMIN/BUTALBITAL/CAFFEINE TAB PO PRN (01:30)
[2022-03-18] MEDS: Morphine 4mg Syringe 4 MG/ML INJ IV PRN ×5 (04:00→22:31)
[2022-03-18] MEDS: TIZANIDINE HCL 4 MG TAB PO PRN ×2 (04:40→08:43)
[2022-03-18] MEDS: DIAZEPAM 5 MG TAB PO PRN ×2 (04:40→21:40)
[2022-03-18] MEDS ORDERED: SODIUM CHLORIDE 0.9% 250ML 250 ML ONE (05:18)
[2022-03-18] MEDS: LEVOTHYROXINE SODIUM 75 MCG TAB PO SCH (05:51)
[2022-03-18] MEDS: GABAPENTIN 300 MG CAP PO SCH ×3 (05:51→21:40)
[2022-03-18] MEDS ORDERED: LEVOTHYROXINE SODIUM 75 MCG TAB PO SCH (06:00)
[2022-03-18] MEDS: DOCUSATE SODIUM 100 MG CAP PO SCH ×2 (08:25→17:00)
[2022-03-18] MEDS: FUROSEMIDE 40 MG TAB PO SCH (08:26)
[2022-03-18] MEDS: MULTIVITAMINS/MINERALS TAB PO SCH (08:26)
[2022-03-18] MEDS: FAMOTIDINE 20 MG TAB PO SCH ×2 (08:26→17:30)
[2022-03-18] MEDS: ALPRAZOLAM 0.25 MG TAB PO PRN (08:47)
[2022-03-18] MEDS ORDERED: DEXAMETHASONE 4 MG TAB PO SCH (09:00)
[2022-03-18] MEDS ORDERED: TIZANIDINE HCL 4 MG TAB PO SCH (09:00)
[2022-03-18] MEDS ORDERED: DIAZEPAM 5 MG TAB PO SCH (09:00)
[2022-03-18] MEDS: HYDROCODONE/APAP 10MG-325MG TAB PO PRN ×2 (14:30→20:24)
[2022-03-18] MEDS ORDERED: METHYLPREDNISOLONE SOD SUCC 40 MG/ML VIAL 1ML IV ONE (17:30)
[2022-03-18] MEDS: OXCARBAZEPINE 300 MG TAB PO SCH (20:24)
[2022-03-18] MEDS ORDERED: ZOLPIDEM TARTRATE 10 MG TAB PO SCH (21:00)
[2022-03-18] MEDS: METHYLPREDNISOLONE SOD SUCC 125 MG/2ML VIAL IV SCH (21:40)
[2022-03-18] MEDS: ONDANSETRON HCL INJ 2MG/ML 2ML 2 MG/ML VIAL IV PRN (22:30)
[2022-03-19] VITALS (10 sets, daily range): BP systolic 100–115; BP diastolic 59–72
[2022-03-19] MEDS: ZOLPIDEM TARTRATE 10 MG TAB PO SCH ×2 (00:14→23:10)
[2022-03-19] MEDS: TIZANIDINE HCL 4 MG TAB PO PRN (00:15)
[2022-03-19] MEDS: HYDROCODONE/APAP 10MG-325MG TAB PO PRN ×2 (01:48→06:03)
[2022-03-19] MEDS: Morphine 4mg Syringe 4 MG/ML INJ IV PRN ×5 (03:34→23:10)
[2022-03-19] MEDS: LEVOTHYROXINE SODIUM 75 MCG TAB PO SCH (05:50)
[2022-03-19] MEDS: GABAPENTIN 300 MG CAP PO SCH ×3 (05:50→23:05)
[2022-03-19] MEDS: METHYLPREDNISOLONE SOD SUCC 125 MG/2ML VIAL IV SCH ×3 (05:50→23:05)
[2022-03-19 06:01] LABS: BASOPHILS % 0.3 % (0.0-1.0); EOSINOPHILS % 0.3 % (0.0-6.0); HEMATOCRIT 41.8 % (34.2-44.1); HEMOGLOBIN 13.7 g/dL (12.0-16.0); LYMPHOCYTES # (AUTO) 1.5 (1.0-3.2); LYMPHOCYTES % 12.9 % (18.0-39.1); MEAN CORPUSCULAR HEMOGLOBIN 31.1 pg (28-32); MEAN CORPUSCULAR HGB CONC 32.8 g/dL (31-35); MONOCYTES # (AUTO) 0.5 (0.2-0.8); MONOCYTES % 4.6 % (4.4-11.3); NEUTROPHILS # (AUTO) 9.4 (2.1-6.9); NEUTROPHILS % 81.6 % (38.7-80.0); PLATELET COUNT 344 x10e3/uL (140-360); RED CELL DISTRIBUTION WIDTH 14.6 % (11.7-14.4)
[2022-03-19 06:35] LABS: ALBUMIN 3.3 g/dL (3.5-5.0); ANION GAP 11.6 mmol/L (8-16); CALCIUM 8.3 mg/dL (8.4-10.2); CHOL/HDL RATIO 3.7 (3.0-3.6); CREATININE, SERUM 0.75 mg/dL (0.57-1.11); MAGNESIUM 2.1 MG/DL (1.3-2.1); PHOSPHORUS 3.4 MG/DL (2.3-4.7); POTASSIUM 4.6 mmol/L (3.5-5.1)
[2022-03-19 07:01] LABS: THYROID STIMULATING HORMONE 1.175 uIU/mL (0.350-4.940)
[2022-03-19] MEDS: FAMOTIDINE 20 MG TAB PO SCH ×2 (08:20→16:44)
[2022-03-19] MEDS: DOCUSATE SODIUM 100 MG CAP PO SCH ×3 (09:10→20:38)
[2022-03-19] MEDS: FUROSEMIDE 40 MG TAB PO SCH (09:10)
[2022-03-19] MEDS: MULTIVITAMINS/MINERALS TAB PO SCH (09:11)
[2022-03-19] MEDS: ALPRAZOLAM 0.25 MG TAB PO PRN (17:53)
[2022-03-19] MEDS: DIAZEPAM 5 MG TAB PO PRN (20:38)
[2022-03-19] MEDS: OXCARBAZEPINE 300 MG TAB PO SCH (20:38)
[2022-03-20] VITALS: BP 116/73
[2022-03-20] MEDS: HYDROCODONE/APAP 10MG-325MG TAB PO PRN (01:40)
[2022-03-20] MEDS: Morphine 4mg Syringe 4 MG/ML INJ IV PRN ×2 (03:23→11:28)
[2022-03-20] MEDS: ONDANSETRON HCL INJ 2MG/ML 2ML 2 MG/ML VIAL IV PRN (03:23)
[2022-03-20 04:00] VITALS: BP 103/62
[2022-03-20] MEDS: FAMOTIDINE 20 MG TAB PO SCH (05:40)
[2022-03-20] MEDS: LEVOTHYROXINE SODIUM 75 MCG TAB PO SCH (05:40)
[2022-03-20] MEDS: GABAPENTIN 300 MG CAP PO SCH ×2 (05:40→14:11)
[2022-03-20] MEDS: TIZANIDINE HCL 4 MG TAB PO PRN (05:54)
[2022-03-20] MEDS: METHYLPREDNISOLONE SOD SUCC 125 MG/2ML VIAL IV SCH ×2 (07:13→14:11)
[2022-03-20 08:06] VITALS: BP 103/62
[2022-03-20 08:11] VITALS: BP 96/60
[2022-03-20] MEDS ORDERED: POLYETHYLENE GLYCOL 3350 17 GM PACK PO SCH (09:00)
[2022-03-20] MEDS: FUROSEMIDE 40 MG TAB PO SCH (09:28)
[2022-03-20] MEDS: MULTIVITAMINS/MINERALS TAB PO SCH (09:28)
[2022-03-20] MEDS: DOCUSATE SODIUM 100 MG CAP PO SCH (09:28)
[2022-03-20 12:01] VITALS: BP 104/60
[2022-03-20] MEDS ORDERED: CEFUROXIME250 MG PO (13:12)
[2022-03-20] MEDS ORDERED: DECADRON4 M1 PO ×2 (13:16→13:17)
[2022-03-20] MEDS ORDERED: ONDANSETRON HCL INJ 2MG/ML 2ML 2 MG/ML VIAL IV PRN (14:30)
== END 2022-03-20 15:42 | disposition home or self-care (01) | DRG 546 ==
LOC: ER 15:00 → ERHOLD 17:54 → UNDOADMOB 17:54 → ERHOLD 18:05 → ER 18:11 → MED/SURG2 20:15 → OBSVTOIN 03-19 14:47
PROVIDERS: ADMIT Internal Medicine; ATTEND Internal Medicine
DX: M06.9 Rheumatoid arthritis, unspecified (principal); N39.0 Urinary tract infection, site not specified; W19.XXXA Unspecified fall, initial encounter; F41.9 Anxiety disorder, unspecified; E03.9 Hypothyroidism, unspecified; R11.2 Nausea with vomiting, unspecified; B96.1 Klebsiella pneumoniae [K. pneumoniae] as the cause of diseases classified elsewhere; F17.210 Nicotine dependence, cigarettes, uncomplicated; Z98.84 Bariatric surgery status; G47.00 Insomnia, unspecified; Z20.822 Contact with and (suspected) exposure to COVID-19; Z79.899 Other long term (current) drug therapy; G25.81 Restless legs syndrome; M79.7 Fibromyalgia; Z28.311 Partially vaccinated for COVID-19; E66.9 Obesity, unspecified; Z68.32 Body mass index [BMI] 32.0-32.9, adult; M46.92 Unspecified inflammatory spondylopathy, cervical region; E66.8 Other obesity; I10 Essential (primary) hypertension; F32.A Depression, unspecified; R60.9 Edema, unspecified; Z88.3 Allergy status to other anti-infective agents; Z88.5 Allergy status to narcotic agent; Z88.8 Allergy status to other drugs, medicaments and biological substances
CPT/HCPCS: 36415; 70450; 71045; 72125; 80053; 80061; 81001; 83036; 83735; 83880; 84100; 84443; 84702; 85025; 87086; 87186; 94799; G0378; J0696; J2270; J2405; J2920; J2930; J7030; J7050; U0002

== ENCOUNTER 2022-03-29 16:44 | Inpatient (IN) | payer OTHER ==
[~2022-03-29] VITALS: Ht 157.5 cm; Wt 79.4 kg
[~2022-03-29 16:44] MED LIST changes: +ALPRAZOLAM0.25 MG PO; +CEFUROXIME250 MG PO; +DECADRON4 M1 PO; +DICLOFENAC SODI50 MG PO; +FUROSEMIDE40 MG PO; +HYDROCODON-ACE1 EAC9 PO
[2022-03-29] MEDS ORDERED: ACETAMINOPHEN 325 MG TAB PO ONE (17:30)
[2022-03-29] MEDS ORDERED: SODIUM CHLORIDE 0.9% 1000ML 1,000 ML IV ONE (17:30)
[2022-03-29 17:34] LABS: BASOPHILS % 0.2 % (0.0-1.0); EOSINOPHILS # (AUTO) 0.2 (0.0-0.4); EOSINOPHILS % 0.8 % (0.0-6.0); HEMATOCRIT 37.7 % (34.2-44.1); HEMOGLOBIN 12.2 g/dL (12.0-16.0); LYMPHOCYTES # (AUTO) 1.3 (1.0-3.2); LYMPHOCYTES % 6.8 % (18.0-39.1); MEAN CORPUSCULAR HEMOGLOBIN 31.1 pg (28-32); MEAN CORPUSCULAR HGB CONC 32.4 g/dL (31-35); MEAN CORPUSCULAR VOLUME 96.2 fL (81-99); MONOCYTES # (AUTO) 0.9 (0.2-0.8); MONOCYTES % 4.7 % (4.4-11.3); NEUTROPHILS # (AUTO) 16.9 (2.1-6.9); PLATELET COUNT 317 x10e3/uL (140-360); RED BLOOD COUNT 3.92 x10e6/uL (3.6-5.1); RED CELL DISTRIBUTION WIDTH 14.9 % (11.7-14.4)
[2022-03-29 17:47] LABS: ALBUMIN 3.1 g/dL (3.5-5.0); ALBUMIN/GLOBULIN RATIO 0.9 (0.8-2.0); ANION GAP 13.2 mmol/L (8-16); CREATININE, SERUM 0.71 mg/dL (0.57-1.11); POTASSIUM 4.2 mmol/L (3.5-5.1)
[2022-03-29 18:05] LABS: CLARITY,URINE SL CLOUDY (CLEAR); COLOR,URINE YELLOW (YELLOW); KETONES,URINE NEGATIVE (NEGATIVE); LEUKOCYTE ESTERASE ,URINE NEGATIVE (NEGATIVE); NITRITE,URINE NEGATIVE (NEGATIVE); PROTEIN,URINE DIPSTICK NEGATIVE (NEGATIVE); URINE UROBILINOGEN 0.2 mg/dL (0.2 - 1)
[2022-03-29] MEDS ORDERED: ACETAMINOPHEN 325 MG TAB PO PRN (18:15)
[2022-03-29 18:16] LABS: BACTERIA,URINE MODERATE /HPF; EPITHELIAL CELLS,URINE MANY /LPF; RBC,URINE 0-5 /HPF (0-5)
[2022-03-29 18:17] LABS: AMORPHOUS SEDIMENT,URINE MODERATE (FEW); MUCUS,URINE MODERATE (RARE)
[2022-03-29] MEDS: IPRATROPIUM BROMIDE 0.02% 2.5 ML NEB NEB SCH ×2 (18:26→23:10)
[2022-03-29] MEDS: ALBUTEROL SULF 0.083% NEB SOLN 3 ML NEB NEB SCH ×2 (18:26→23:10)
[2022-03-29] MEDS: SODIUM CHLORIDE 0.9% 1000ML 1,000 ML IV SCH (18:31)
[2022-03-29 18:37] LABS: CREATINE KINASE MB 0.5 ng/mL (0-5.0)
[2022-03-29] MEDS ORDERED: ONDANSETRON HCL INJ 2MG/ML 2ML 2 MG/ML VIAL ONE (19:33)
[2022-03-29] MEDS ORDERED: ONDANSETRON HCL INJ 2MG/ML 2ML 2 MG/ML VIAL IV PRN (19:45)
[2022-03-29 21:00] VITALS: BP 95/69
[2022-03-29] MEDS ORDERED: SOMA350 MG PO (21:14)
[2022-03-29] MEDS ORDERED: HYDROCODON-ACE1 EAC9 PO (21:14)
[2022-03-29] MEDS ORDERED: ALPRAZOLAM 0.25 MG TAB PO PRN (22:15)
[2022-03-29 23:47] VITALS: BP 103/69
[2022-03-30] VITALS (8 sets, daily range): BP systolic 96–120; BP diastolic 59–75
[2022-03-30] MEDS: DIAZEPAM 5 MG TAB PO SCH ×3 (00:04→17:24)
[2022-03-30] MEDS: HYDROCODONE/APAP 10MG-325MG TAB PO PRN ×2 (00:05→09:06)
[2022-03-30 02:55] LABS: CREATINE KINASE 90 IU/L (29-168)
[2022-03-30] MEDS: ALBUTEROL SULF 0.083% NEB SOLN 3 ML NEB NEB SCH ×3 (03:03→10:53)
[2022-03-30] MEDS: IPRATROPIUM BROMIDE 0.02% 2.5 ML NEB NEB SCH ×2 (03:04→07:00)
[2022-03-30] MEDS: SODIUM CHLORIDE 0.9% 1000ML 1,000 ML IV SCH ×2 (05:53→10:15)
[2022-03-30] MEDS ORDERED: AMBIEN PO (09:11)
[2022-03-30 09:32] LABS: CREATINE KINASE MB 1.1 ng/mL (0-5.0)
[2022-03-30] MEDS ORDERED: LACTATED RINGER'S 1,000 ML INJ ONE (11:00)
[2022-03-30] MEDS ORDERED: Vancomycin IV 1 GM in SODIUM CHLORIDE 0.9% 250ML 250 ML IV ONE (11:00)
[2022-03-30] MEDS ORDERED: POLYETHYLENE GLYCOL 3350 17 GM PACK PO PRN (11:15)
[2022-03-30] MEDS ORDERED: ACETAMINOPHEN 325 MG TAB PO PRN ×2 (11:15)
[2022-03-30] MEDS ORDERED: HYDRALAZINE HCL 20 MG/ML VIAL IV PRN (11:15)
[2022-03-30] MEDS ORDERED: HYDROCODONE/APAP 10MG-325MG TAB PO PRN (11:15)
[2022-03-30] MEDS ORDERED: FUROSEMIDE 40 MG TAB PO PRN (11:15)
[2022-03-30] MEDS ORDERED: IBUPROFEN 600 MG TAB PO PRN (11:15)
[2022-03-30] MEDS ORDERED: ALPRAZOLAM 0.25 MG TAB PO PRN (11:30)
[2022-03-30] MEDS ORDERED: TRAMADOL HCL 50 MG TAB PO PRN (11:45)
[2022-03-30] MEDS ORDERED: CARISOPRODOL 350 MG TAB PO PRN (11:45)
[2022-03-30] MEDS: GABAPENTIN 300 MG CAP PO SCH ×2 (12:56→22:18)
[2022-03-30] MEDS: Morphine 2mg Syringe 2 MG/ML SYR IV PRN ×3 (12:56→23:45)
[2022-03-30] MEDS: CARISOPRODOL 350 MG TAB PO SCH ×2 (12:56→22:19)
[2022-03-30] MEDS ORDERED: IPRATROPIUM BROMIDE 0.02% 2.5 ML NEB NEB SCH (14:00)
[2022-03-30] MEDS: ALBUTEROL/IPRATROPIUM 3 ML NEB NEB SCH ×3 (14:45→22:50)
[2022-03-30] MEDS ORDERED: GABAPENTIN 300 MG CAP PO SCH (15:00)
[2022-03-30] MEDS: OXYCODONE/ACETAMINOPHEN 5-325 1 EACH TABLET PO PRN ×2 (15:38→20:59)
[2022-03-30] MEDS: DOCUSATE SODIUM 100 MG CAP PO SCH (17:24)
[2022-03-30] MEDS: FAMOTIDINE 20 MG TAB PO SCH (17:24)
[2022-03-30] MEDS: ONDANSETRON HCL 4 MG ORAL DISINTEGRATING TAB PO PRN (18:05)
[2022-03-30] MEDS: OXCARBAZEPINE 300 MG TAB PO SCH (21:02)
[2022-03-30] MEDS: ZOLPIDEM TARTRATE 10 MG TAB PO PRN (23:55)
[2022-03-31] VITALS (9 sets, daily range): BP systolic 96–125; BP diastolic 59–85
[2022-03-31] MEDS: ALBUTEROL/IPRATROPIUM 3 ML NEB NEB SCH ×8 (03:00→23:00)
[2022-03-31] MEDS: Morphine 2mg Syringe 2 MG/ML SYR IV PRN ×5 (04:18→20:51)
[2022-03-31] MEDS ORDERED: SODIUM CHLORIDE 0.9% 250ML 250 ML ONE (04:25)
[2022-03-31] MEDS: OXYCODONE/ACETAMINOPHEN 5-325 1 EACH TABLET PO PRN ×5 (06:25→23:45)
[2022-03-31] MEDS: LEVOTHYROXINE SODIUM 75 MCG TAB PO SCH (06:27)
[2022-03-31] MEDS: CARISOPRODOL 350 MG TAB PO SCH ×3 (06:27→23:45)
[2022-03-31] MEDS: GABAPENTIN 300 MG CAP PO SCH ×3 (06:27→22:00)
[2022-03-31 06:45] LABS: BASOPHILS # (AUTO) 0.1 (0.0-0.1); BASOPHILS % 0.4 % (0.0-1.0); EOSINOPHILS # (AUTO) 0.2 (0.0-0.4); EOSINOPHILS % 1.9 % (0.0-6.0); HEMATOCRIT 30.9 % (34.2-44.1); HEMOGLOBIN 9.9 g/dL (12.0-16.0); LYMPHOCYTES # (AUTO) 1.9 (1.0-3.2); LYMPHOCYTES % 15.2 % (18.0-39.1); MEAN CORPUSCULAR HEMOGLOBIN 30.7 pg (28-32); MONOCYTES # (AUTO) 0.7 (0.2-0.8); MONOCYTES % 5.9 % (4.4-11.3); NEUTROPHILS # (AUTO) 9.3 (2.1-6.9); PLATELET COUNT 262 x10e3/uL (140-360); RED BLOOD COUNT 3.22 x10e6/uL (3.6-5.1); RED CELL DISTRIBUTION WIDTH 15.2 % (11.7-14.4)
[2022-03-31 07:23] LABS: ALBUMIN 2.6 g/dL (3.5-5.0); ALBUMIN/GLOBULIN RATIO 1.1 (0.8-2.0); ANION GAP 10.4 mmol/L (8-16); CALCIUM 7.9 mg/dL (8.4-10.2); CREATININE, SERUM 0.6 mg/dL (0.57-1.11); POTASSIUM 3.4 mmol/L (3.5-5.1)
[2022-03-31 07:59] LABS: MAGNESIUM 1.7 MG/DL (1.3-2.1); PHOSPHORUS 3.5 MG/DL (2.3-4.7)
[2022-03-31] MEDS: ONDANSETRON HCL 4 MG ORAL DISINTEGRATING TAB PO PRN ×2 (08:05→16:25)
[2022-03-31] MEDS: FAMOTIDINE 20 MG TAB PO SCH ×2 (08:30→16:31)
[2022-03-31] MEDS: DOCUSATE SODIUM 100 MG CAP PO SCH ×2 (08:30→16:31)
[2022-03-31] MEDS: DEXAMETHASONE 4 MG TAB PO SCH (08:30)
[2022-03-31] MEDS: DIAZEPAM 5 MG TAB PO SCH ×2 (08:30→16:31)
[2022-03-31] MEDS ORDERED: MAGNESIUM SULF 1GRAM/DEXTROSE 100 ML IV ONE (08:45)
[2022-03-31] MEDS ORDERED: POTASSIUM CHLORIDE 20 MEQ TAB CR PO ONE (08:45)
[2022-03-31 10:09] LABS: FERRITIN 406.3 ng/mL (4.63-204.00)
[2022-03-31] MEDS: OXCARBAZEPINE 300 MG TAB PO SCH (20:51)
[2022-03-31] MEDS: ZOLPIDEM TARTRATE 10 MG TAB PO PRN (23:45)
[2022-04-01] VITALS (8 sets, daily range): BP systolic 114–127; BP diastolic 64–97
[2022-04-01] MEDS: ALBUTEROL/IPRATROPIUM 3 ML NEB NEB SCH ×6 (02:04→23:05)
[2022-04-01] MEDS: Morphine 2mg Syringe 2 MG/ML SYR IV PRN ×4 (04:22→20:47)
[2022-04-01 05:34] LABS: BASOPHILS # (AUTO) 0.1 (0.0-0.1); BASOPHILS % 0.4 % (0.0-1.0); EOSINOPHILS # (AUTO) 0.1 (0.0-0.4); HEMATOCRIT 30.7 % (34.2-44.1); HEMOGLOBIN 10.1 g/dL (12.0-16.0); LYMPHOCYTES # (AUTO) 2.3 (1.0-3.2); LYMPHOCYTES % 16.2 % (18.0-39.1); MEAN CORPUSCULAR HEMOGLOBIN 31.2 pg (28-32); MEAN CORPUSCULAR HGB CONC 32.9 g/dL (31-35); MEAN CORPUSCULAR VOLUME 94.8 fL (81-99); MONOCYTES # (AUTO) 0.8 (0.2-0.8); MONOCYTES % 5.6 % (4.4-11.3); NEUTROPHILS # (AUTO) 10.9 (2.1-6.9); NEUTROPHILS % 76.2 % (38.7-80.0); PLATELET COUNT 283 x10e3/uL (140-360); RED BLOOD COUNT 3.24 x10e6/uL (3.6-5.1); RED CELL DISTRIBUTION WIDTH 15.1 % (11.7-14.4)
[2022-04-01 05:48] LABS: CREATININE, SERUM 0.66 mg/dL (0.57-1.11)
[2022-04-01] MEDS: LEVOTHYROXINE SODIUM 75 MCG TAB PO SCH (06:09)
[2022-04-01] MEDS: GABAPENTIN 300 MG CAP PO SCH ×3 (06:09→21:51)
[2022-04-01] MEDS: CARISOPRODOL 350 MG TAB PO SCH ×3 (06:09→21:52)
[2022-04-01] MEDS: FAMOTIDINE 20 MG TAB PO SCH ×2 (06:09→16:00)
[2022-04-01] MEDS: OXYCODONE/ACETAMINOPHEN 5-325 1 EACH TABLET PO PRN ×2 (06:54→13:47)
[2022-04-01] MEDS: DIAZEPAM 5 MG TAB PO SCH ×2 (08:59→16:01)
[2022-04-01] MEDS: DOCUSATE SODIUM 100 MG CAP PO SCH ×2 (08:59→16:01)
[2022-04-01] MEDS: DEXAMETHASONE 4 MG TAB PO SCH (08:59)
[2022-04-01] MEDS: IRON SUCROSE 100 MG in SODIUM CHLORIDE 0.9% 100 ML 100 ML IV SCH (08:59)
[2022-04-01] MEDS ORDERED: SODIUM CHLORIDE 0.9% 1000ML 1,000 ML ONE (09:16)
[2022-04-01] MEDS: FOLIC ACID 1 MG TAB PO SCH (10:00)
[2022-04-01] MEDS: CYANOCOBALAMIN 1,000 MCG TAB PO SCH (10:00)
[2022-04-01] MEDS ORDERED: IOPAMIDOL 370 MG/ML 100 ML INFUS..BTL INJ ONE (18:04)
[2022-04-01] MEDS: OXCARBAZEPINE 300 MG TAB PO SCH (20:43)
[2022-04-01] MEDS: ZOLPIDEM TARTRATE 10 MG TAB PO PRN (23:58)
[2022-04-02] VITALS (9 sets, daily range): BP systolic 104–125; BP diastolic 73–96
[2022-04-02] MEDS: Morphine 2mg Syringe 2 MG/ML SYR IV PRN ×3 (02:03→21:57)
[2022-04-02] MEDS: ALBUTEROL/IPRATROPIUM 3 ML NEB NEB SCH ×6 (02:25→22:45)
[2022-04-02 05:48] LABS: BASOPHILS % 0.3 % (0.0-1.0); EOSINOPHILS # (AUTO) 0.2 (0.0-0.4); EOSINOPHILS % 1.9 % (0.0-6.0); HEMATOCRIT 29.2 % (34.2-44.1); LYMPHOCYTES # (AUTO) 1.9 (1.0-3.2); LYMPHOCYTES % 16.1 % (18.0-39.1); MEAN CORPUSCULAR HEMOGLOBIN 31.5 pg (28-32); MEAN CORPUSCULAR HGB CONC 34.2 g/dL (31-35); MEAN CORPUSCULAR VOLUME 92.1 fL (81-99); MONOCYTES % 8.7 % (4.4-11.3); NEUTROPHILS # (AUTO) 8.5 (2.1-6.9); NEUTROPHILS % 72.5 % (38.7-80.0); PLATELET COUNT 296 x10e3/uL (140-360); RED BLOOD COUNT 3.17 x10e6/uL (3.6-5.1); RED CELL DISTRIBUTION WIDTH 14.5 % (11.7-14.4)
[2022-04-02] MEDS: LEVOTHYROXINE SODIUM 75 MCG TAB PO SCH (05:50)
[2022-04-02] MEDS: GABAPENTIN 300 MG CAP PO SCH ×3 (05:50→21:58)
[2022-04-02] MEDS: CARISOPRODOL 350 MG TAB PO SCH ×3 (05:50→23:51)
[2022-04-02 06:13] LABS: ANION GAP 10.7 mmol/L (8-16); CALCIUM 7.7 mg/dL (8.4-10.2); CREATININE, SERUM 0.57 mg/dL (0.57-1.11); POTASSIUM 3.7 mmol/L (3.5-5.1)
[2022-04-02] MEDS: FAMOTIDINE 20 MG TAB PO SCH ×2 (08:15→16:48)
[2022-04-02] MEDS: DEXAMETHASONE 4 MG TAB PO SCH (09:12)
[2022-04-02] MEDS: DOCUSATE SODIUM 100 MG CAP PO SCH ×2 (09:12→17:05)
[2022-04-02] MEDS: IRON SUCROSE 100 MG in SODIUM CHLORIDE 0.9% 100 ML 100 ML IV SCH (09:12)
[2022-04-02] MEDS: FOLIC ACID 1 MG TAB PO SCH (09:13)
[2022-04-02] MEDS: CYANOCOBALAMIN 1,000 MCG TAB PO SCH (09:13)
[2022-04-02] MEDS: DIAZEPAM 5 MG TAB PO SCH ×2 (09:13→17:05)
[2022-04-02] MEDS: OXYCODONE/ACETAMINOPHEN 5-325 1 EACH TABLET PO PRN ×4 (09:55→23:51)
[2022-04-02] MEDS: OXCARBAZEPINE 300 MG TAB PO SCH (21:58)
[2022-04-02] MEDS: ZOLPIDEM TARTRATE 10 MG TAB PO PRN (23:51)
[2022-04-03] VITALS (9 sets, daily range): BP systolic 104–123; BP diastolic 65–84
[2022-04-03] MEDS: Morphine 2mg Syringe 2 MG/ML SYR IV PRN ×2 (01:57→08:17)
[2022-04-03] MEDS: ALBUTEROL/IPRATROPIUM 3 ML NEB NEB SCH ×3 (02:30→10:34)
[2022-04-03 05:38] LABS: BASOPHILS % 0.4 % (0.0-1.0); EOSINOPHILS # (AUTO) 0.3 (0.0-0.4); HEMATOCRIT 31.7 % (34.2-44.1); HEMOGLOBIN 10.5 g/dL (12.0-16.0); LYMPHOCYTES # (AUTO) 2.2 (1.0-3.2); LYMPHOCYTES % 21.1 % (18.0-39.1); MEAN CORPUSCULAR HGB CONC 33.1 g/dL (31-35); MEAN CORPUSCULAR VOLUME 93.5 fL (81-99); MONOCYTES # (AUTO) 0.8 (0.2-0.8); NEUTROPHILS # (AUTO) 6.9 (2.1-6.9); NEUTROPHILS % 67.2 % (38.7-80.0); PLATELET COUNT 335 x10e3/uL (140-360); RED BLOOD COUNT 3.39 x10e6/uL (3.6-5.1); RED CELL DISTRIBUTION WIDTH 14.8 % (11.7-14.4)
[2022-04-03 06:08] LABS: CALCIUM 7.8 mg/dL (8.4-10.2); CREATININE, SERUM 0.58 mg/dL (0.57-1.11); MAGNESIUM 2.1 MG/DL (1.3-2.1); PHOSPHORUS 4.1 MG/DL (2.3-4.7)
[2022-04-03] MEDS: CARISOPRODOL 350 MG TAB PO SCH (06:09)
[2022-04-03] MEDS: LEVOTHYROXINE SODIUM 75 MCG TAB PO SCH (06:09)
[2022-04-03] MEDS: GABAPENTIN 300 MG CAP PO SCH (06:09)
[2022-04-03] MEDS ORDERED: ACETAMIN/BUTALBITAL/CAFFEINE TAB PO ONE ×2 (07:45→08:45)
[2022-04-03] MEDS: DOCUSATE SODIUM 100 MG CAP PO SCH (08:16)
[2022-04-03] MEDS: FOLIC ACID 1 MG TAB PO SCH (08:16)
[2022-04-03] MEDS: DIAZEPAM 5 MG TAB PO SCH (08:16)
[2022-04-03] MEDS: CYANOCOBALAMIN 1,000 MCG TAB PO SCH (08:17)
[2022-04-03] MEDS: DEXAMETHASONE 4 MG TAB PO SCH (08:17)
[2022-04-03] MEDS: FAMOTIDINE 20 MG TAB PO SCH (08:18)
[2022-04-03] MEDS: IRON SUCROSE 100 MG in SODIUM CHLORIDE 0.9% 100 ML 100 ML IV SCH (10:40)
[2022-04-03] MEDS ORDERED: MIRALAX17 GM PO (12:47)
[2022-04-03] MEDS ORDERED: ACETAMINOPHEN325 M1 PO (12:47)
[2022-04-03] MEDS ORDERED: Folic Acid PO (12:47)
[2022-04-03] MEDS ORDERED: CEFDINIR300 MG PO (12:47)
[2022-04-03] MEDS ORDERED: AZITHROMYCIN250 MG PO (12:47)
[2022-04-03] MEDS ORDERED: VITAMIN B-121000 MCG PO (12:47)
[2022-04-03] MEDS ORDERED: Albuterol/Ipratropium Nebulize NEB (12:47)
[2022-04-03] MEDS ORDERED: Docusate Sodium PO (12:47)
[2022-04-03] MEDS ORDERED: AZITHROMYCIN 250 MG TAB PO SCH (16:00)
== END 2022-04-03 14:42 | disposition home health service (06) | DRG 871 ==
LOC: ER 17:22 → ERHOLD 18:18 → MED/SURG3 20:40
PROVIDERS: ADMIT Internal Medicine; ATTEND Internal Medicine
DX: A41.9 Sepsis, unspecified organism (principal); J18.9 Pneumonia, unspecified organism; G93.5 Compression of brain; N39.0 Urinary tract infection, site not specified; E87.1 Hypo-osmolality and hyponatremia; J90 Pleural effusion, not elsewhere classified; I31.3 Pericardial effusion (noninflammatory); M06.4 Inflammatory polyarthropathy; I10 Essential (primary) hypertension; E03.9 Hypothyroidism, unspecified; D64.9 Anemia, unspecified; E87.6 Hypokalemia; E83.42 Hypomagnesemia; R09.02 Hypoxemia; F41.9 Anxiety disorder, unspecified; K44.9 Diaphragmatic hernia without obstruction or gangrene; Z88.5 Allergy status to narcotic agent; Z88.8 Allergy status to other drugs, medicaments and biological substances; M46.82 Other specified inflammatory spondylopathies, cervical region; G47.00 Insomnia, unspecified; Z98.84 Bariatric surgery status; Z72.0 Tobacco use; Z87.01 Personal history of pneumonia (recurrent); Z90.49 Acquired absence of other specified parts of digestive tract; Z83.3 Family history of diabetes mellitus; Z82.49 Family history of ischemic heart disease and other diseases of the circulatory system; Z80.1 Family history of malignant neoplasm of trachea, bronchus and lung; Z80.8 Family history of malignant neoplasm of other organs or systems; Z80.3 Family history of malignant neoplasm of breast; Z84.89 Family history of other specified conditions; Z91.81 History of falling; Z20.822 Contact with and (suspected) exposure to COVID-19; Z99.81 Dependence on supplemental oxygen
CPT/HCPCS: 36415; 71045; 71260; 80048; 80053; 81001; 81025; 82270; 82550; 82553; 82607; 82728; 82746; 82948; 83540; 83605; 83615; 83735; 84100; 84466; 84484; 85025; 85045; 87040; 87086; 93005; 94640; 94799; 96360; 97139; 99284; J0456; J0692; J0696; J1756; J2270; J2405; J3370; J3475; J7030; J7050; J7121; Q0162; Q9967

== ENCOUNTER 2022-06-10 16:36 | Emergency (ER) | payer OTHER ==
[~2022-06-10] VITALS: Ht 157.5 cm; Wt 79.4 kg
[~2022-06-10 16:36] MED LIST changes: +ACETAMINOPHEN325 M1 PO; +AMBIEN PO; +AZITHROMYCIN250 MG PO; +Albuterol/Ipratropium Nebulize NEB; +CEFDINIR300 MG PO; +Docusate Sodium PO; +Folic Acid PO; +MIRALAX17 GM PO; +SOMA350 MG PO; +VITAMIN B-121000 MCG PO
[2022-06-10] MEDS ORDERED: SODIUM CHLORIDE 0.9% 1000ML 1,000 ML IV ONE (17:45)
[2022-06-10 17:58] LABS: BASOPHILS # (AUTO) 0.1 (0.0-0.1); BASOPHILS % 0.6 % (0.0-1.0); EOSINOPHILS # (AUTO) 0.3 (0.0-0.4); EOSINOPHILS % 3.6 % (0.0-6.0); HEMATOCRIT 37.8 % (34.2-44.1); HEMOGLOBIN 12.4 g/dL (12.0-16.0); LYMPHOCYTES # (AUTO) 3.3 (1.0-3.2); LYMPHOCYTES % 34.7 % (18.0-39.1); MEAN CORPUSCULAR HGB CONC 32.8 g/dL (31-35); MEAN CORPUSCULAR VOLUME 94.5 fL (81-99); MONOCYTES # (AUTO) 0.6 (0.2-0.8); MONOCYTES % 6.6 % (4.4-11.3); NEUTROPHILS # (AUTO) 5.1 (2.1-6.9); NEUTROPHILS % 54.2 % (38.7-80.0); PLATELET COUNT 325 x10e3/uL (140-360); RED CELL DISTRIBUTION WIDTH 14.5 % (11.7-14.4)
[2022-06-10 18:17] LABS: ALBUMIN 3.7 g/dL (3.5-5.0); ALBUMIN/GLOBULIN RATIO 1.2 (0.8-2.0); ANION GAP 10.9 mmol/L (8-16); CALCIUM 8.3 mg/dL (8.4-10.2); CREATININE, SERUM 0.78 mg/dL (0.57-1.11); POTASSIUM 3.9 mmol/L (3.5-5.1)
[2022-06-10 18:34] LABS: CLARITY,URINE SL CLOUDY (CLEAR); COLOR,URINE STRAW (YELLOW); KETONES,URINE TRACE (NEGATIVE); LEUKOCYTE ESTERASE ,URINE TRACE (NEGATIVE); NITRITE,URINE NEGATIVE (NEGATIVE); PROTEIN,URINE DIPSTICK NEGATIVE (NEGATIVE); URINE UROBILINOGEN 0.2 mg/dL (0.2 - 1)
[2022-06-10 18:45] LABS: BACTERIA,URINE MODERATE /HPF; EPITHELIAL CELLS,URINE MODERATE /LPF; WBC,URINE (MAN) 0-5 /HPF (0-5)
== END 2022-06-10 19:35 | disposition home or self-care (01) ==
LOC: ER 17:06
DX: G89.29 Other chronic pain (principal); M06.9 Rheumatoid arthritis, unspecified; I10 Essential (primary) hypertension; E03.9 Hypothyroidism, unspecified; D64.9 Anemia, unspecified; F41.9 Anxiety disorder, unspecified; Z98.84 Bariatric surgery status
CPT/HCPCS: 36415; 71045; 80053; 81001; 81025; 85025; 99283; J7030; U0002

== ENCOUNTER 2022-07-07 17:14 | Inpatient (IN) | payer OTHER ==
[~2022-07-07] VITALS: Ht 309.9 cm; Wt 79.4 kg
[2022-07-07 18:19] LABS: BASOPHILS # (AUTO) 0.1 (0.0-0.1); BASOPHILS % 0.5 % (0.0-1.0); EOSINOPHILS # (AUTO) 0.5 (0.0-0.4); EOSINOPHILS % 4.5 % (0.0-6.0); HEMATOCRIT 37.8 % (34.2-44.1); LYMPHOCYTES # (AUTO) 2.4 (1.0-3.2); LYMPHOCYTES % 21.6 % (18.0-39.1); MEAN CORPUSCULAR HEMOGLOBIN 31.2 pg (28-32); MEAN CORPUSCULAR HGB CONC 34.4 g/dL (31-35); MEAN CORPUSCULAR VOLUME 90.6 fL (81-99); MONOCYTES # (AUTO) 0.9 (0.2-0.8); NEUTROPHILS # (AUTO) 7.1 (2.1-6.9); NEUTROPHILS % 64.9 % (38.7-80.0); PLATELET COUNT 386 x10e3/uL (140-360); RED BLOOD COUNT 4.17 x10e6/uL (3.6-5.1); RED CELL DISTRIBUTION WIDTH 14.6 % (11.7-14.4)
[2022-07-07 18:22] LABS: CLARITY,URINE CLOUDY (CLEAR); COLOR,URINE AMBER (YELLOW); KETONES,URINE NEGATIVE (NEGATIVE); LEUKOCYTE ESTERASE ,URINE NEGATIVE (NEGATIVE); NITRITE,URINE NEGATIVE (NEGATIVE); PROTEIN,URINE DIPSTICK 2+ (NEGATIVE); URINE UROBILINOGEN 0.2 mg/dL (0.2 - 1)
[2022-07-07 18:31] LABS: AMORPHOUS SEDIMENT,URINE MODERATE (FEW); BACTERIA,URINE FEW /HPF
[2022-07-07] MEDS ORDERED: ONDANSETRON HCL INJ 2MG/ML 2ML 2 MG/ML VIAL IV STA (18:33)
[2022-07-07 18:40] LABS: ALBUMIN 3.2 g/dL (3.5-5.0); ALBUMIN/GLOBULIN RATIO 0.9 (0.8-2.0); CALCIUM 8.5 mg/dL (8.4-10.2); CREATININE, SERUM 2.27 mg/dL (0.57-1.11)
[2022-07-07] MEDS ORDERED: Morphine 4mg INJECTION 4 MG/ML INJ IV ONE (18:45)
[2022-07-07] MEDS ORDERED: Morphine 2mg Syringe 2 MG/ML SYR ONE (19:02)
[2022-07-07] MEDS ORDERED: SODIUM CHLORIDE 0.9% 1000ML 1,000 ML IV ONE (19:15)
[2022-07-07] MEDS ORDERED: Morphine 4mg INJECTION 4 MG/ML INJ IV PRN (20:00)
[2022-07-07] MEDS: HYDROMORPHONE 1MG/1ML INJ IV PRN ×2 (20:45→23:48)
[2022-07-07] MEDS: ONDANSETRON HCL INJ 2MG/ML 2ML 2 MG/ML VIAL IV PRN (20:45)
[2022-07-07 21:00] VITALS: BP 116/81
[2022-07-07 21:02] VITALS: BP 116/81
[2022-07-07] MEDS: SODIUM CHLORIDE 0.9% 1000ML 1,000 ML IV SCH (21:45)
[2022-07-07] MEDS ORDERED: OXYCODONE HCL20 M1 PO (22:01)
[2022-07-07] MEDS ORDERED: ZOLPIDEM TART12.5 MG PO (22:01)
[2022-07-07] MEDS ORDERED: TIZANIDINE HCL4 M1 PO (22:04)
[2022-07-07] MEDS ORDERED: ZOLPIDEM TARTRATE 12.5 MG PO SCH (23:15)
[2022-07-07] MEDS: ZOLPIDEM TARTRATE 10 MG TAB PO PRN (23:45)
[2022-07-07] MEDS: CARISOPRODOL 350 MG TAB PO SCH (23:45)
[2022-07-08] VITALS (8 sets, daily range): BP systolic 98–116; BP diastolic 57–84
[2022-07-08] MEDS: HYDROMORPHONE 1MG/1ML INJ IV PRN ×7 (03:00→23:42)
[2022-07-08 05:45] LABS: BASOPHILS # (AUTO) 0.1 (0.0-0.1); BASOPHILS % 0.5 % (0.0-1.0); EOSINOPHILS # (AUTO) 0.5 (0.0-0.4); EOSINOPHILS % 4.5 % (0.0-6.0); HEMATOCRIT 35.8 % (34.2-44.1); HEMOGLOBIN 12.2 g/dL (12.0-16.0); LYMPHOCYTES % 19.9 % (18.0-39.1); MEAN CORPUSCULAR HEMOGLOBIN 31.1 pg (28-32); MEAN CORPUSCULAR HGB CONC 34.1 g/dL (31-35); MEAN CORPUSCULAR VOLUME 91.3 fL (81-99); MONOCYTES # (AUTO) 0.8 (0.2-0.8); MONOCYTES % 7.7 % (4.4-11.3); NEUTROPHILS # (AUTO) 6.8 (2.1-6.9); NEUTROPHILS % 66.9 % (38.7-80.0); PLATELET COUNT 338 x10e3/uL (140-360); RED BLOOD COUNT 3.92 x10e6/uL (3.6-5.1); RED CELL DISTRIBUTION WIDTH 14.7 % (11.7-14.4)
[2022-07-08 06:10] LABS: ALBUMIN 2.5 g/dL (3.5-5.0); ANION GAP 12.1 mmol/L (8-16); CALCIUM 7.7 mg/dL (8.4-10.2); CREATININE, SERUM 1.8 mg/dL (0.57-1.11); POTASSIUM 4.1 mmol/L (3.5-5.1)
[2022-07-08] MEDS: SODIUM CHLORIDE 0.9% 1000ML 1,000 ML IV SCH ×3 (06:40→20:00)
[2022-07-08] MEDS: CARISOPRODOL 350 MG TAB PO SCH ×3 (08:38→22:14)
[2022-07-08] MEDS: ONDANSETRON HCL INJ 2MG/ML 2ML 2 MG/ML VIAL IV PRN ×3 (10:39→20:06)
[2022-07-08] MEDS ORDERED: ONDANSETRON HCL 4 MG ORAL DISINTEGRATING TAB PO PRN (12:30)
[2022-07-08] MEDS ORDERED: FUROSEMIDE 40 MG TAB PO PRN (12:30)
[2022-07-08] MEDS ORDERED: METOPROLOL TARTRATE INJ 1 MG/ML VIAL IV PRN (12:30)
[2022-07-08] MEDS ORDERED: POLYETHYLENE GLYCOL 3350 17 GM PACK PO PRN (12:30)
[2022-07-08] MEDS ORDERED: ACETAMINOPHEN 325 MG TAB PO PRN (12:30)
[2022-07-08] MEDS: GABAPENTIN 300 MG CAP PO SCH ×2 (13:27→22:13)
[2022-07-08] MEDS ORDERED: TIZANIDINE HCL 4 MG TAB PO SCH (14:00)
[2022-07-08] MEDS: DIAZEPAM 5 MG TAB PO SCH ×2 (14:11→20:24)
[2022-07-08] MEDS: FAMOTIDINE 20 MG TAB PO SCH (16:57)
[2022-07-08] MEDS ORDERED: DIAZEPAM 5 MG TAB PO SCH (17:00)
[2022-07-08] MEDS: OXCARBAZEPINE 300 MG TAB PO SCH (20:24)
[2022-07-09] VITALS (8 sets, daily range): BP systolic 110–119; BP diastolic 66–82
[2022-07-09] MEDS: ZOLPIDEM TARTRATE 10 MG TAB PO PRN (00:33)
[2022-07-09] MEDS: SODIUM CHLORIDE 0.9% 1000ML 1,000 ML IV SCH ×3 (02:45→22:46)
[2022-07-09] MEDS: ONDANSETRON HCL INJ 2MG/ML 2ML 2 MG/ML VIAL IV PRN ×2 (02:48→09:41)
[2022-07-09] MEDS: HYDROMORPHONE 1MG/1ML INJ IV PRN ×7 (02:49→23:42)
[2022-07-09] MEDS: LEVOTHYROXINE SODIUM 75 MCG TAB PO SCH (05:05)
[2022-07-09] MEDS: GABAPENTIN 300 MG CAP PO SCH ×3 (05:05→22:17)
[2022-07-09] MEDS: ALPRAZOLAM 0.25 MG TAB PO PRN (05:05)
[2022-07-09 07:15] LABS: BASOPHILS % 0.4 % (0.0-1.0); EOSINOPHILS # (AUTO) 0.4 (0.0-0.4); EOSINOPHILS % 4.1 % (0.0-6.0); HEMATOCRIT 37.2 % (34.2-44.1); HEMOGLOBIN 12.2 g/dL (12.0-16.0); LYMPHOCYTES # (AUTO) 2.1 (1.0-3.2); MEAN CORPUSCULAR HEMOGLOBIN 30.9 pg (28-32); MEAN CORPUSCULAR HGB CONC 32.8 g/dL (31-35); MEAN CORPUSCULAR VOLUME 94.2 fL (81-99); MONOCYTES # (AUTO) 0.9 (0.2-0.8); MONOCYTES % 9.6 % (4.4-11.3); NEUTROPHILS % 63.5 % (38.7-80.0); PLATELET COUNT 324 x10e3/uL (140-360); RED BLOOD COUNT 3.95 x10e6/uL (3.6-5.1)
[2022-07-09 07:38] LABS: ALBUMIN 2.2 g/dL (3.5-5.0); ALBUMIN/GLOBULIN RATIO 0.9 (0.8-2.0); ANION GAP 12.6 mmol/L (8-16); CALCIUM 7.8 mg/dL (8.4-10.2); CREATININE, SERUM 1.37 mg/dL (0.57-1.11); MAGNESIUM 1.7 MG/DL (1.3-2.1); PHOSPHORUS 3.5 MG/DL (2.3-4.7); POTASSIUM 4.6 mmol/L (3.5-5.1)
[2022-07-09] MEDS: CARISOPRODOL 350 MG TAB PO SCH ×3 (09:36→22:52)
[2022-07-09] MEDS: FAMOTIDINE 20 MG TAB PO SCH ×2 (09:36→16:15)
[2022-07-09] MEDS: DEXAMETHASONE 4 MG TAB PO SCH (09:37)
[2022-07-09] MEDS: DIAZEPAM 5 MG TAB PO SCH ×2 (09:37→22:17)
[2022-07-09] MEDS ORDERED: SENNA-S TABLET PO PRN (11:00)
[2022-07-09] MEDS ORDERED: MAGNESIUM OXIDE 400 MG TAB PO ONE (11:15)
[2022-07-09] MEDS: POLYETHYLENE GLYCOL 3350 17 GM PACK PO SCH (16:14)
[2022-07-09] MEDS: DOCUSATE SODIUM 100 MG CAP PO SCH ×2 (16:15→22:16)
[2022-07-09] MEDS: DIPHENHYDRAMINE HCL 25 MG CAP PO PRN (16:15)
[2022-07-09] MEDS: OXCARBAZEPINE 300 MG TAB PO SCH (22:17)
[2022-07-10] VITALS (9 sets, daily range): BP systolic 102–139; BP diastolic 63–89
[2022-07-10] MEDS: OXYCODONE HCL 20 MG TAB CR PO PRN (01:19)
[2022-07-10] MEDS: ZOLPIDEM TARTRATE 10 MG TAB PO PRN ×2 (01:20→21:21)
[2022-07-10] MEDS: HYDROMORPHONE 1MG/1ML INJ IV PRN ×6 (03:15→22:01)
[2022-07-10] MEDS: LEVOTHYROXINE SODIUM 75 MCG TAB PO SCH (05:24)
[2022-07-10] MEDS: GABAPENTIN 300 MG CAP PO SCH ×3 (05:24→21:10)
[2022-07-10] MEDS: ALPRAZOLAM 0.25 MG TAB PO PRN (05:24)
[2022-07-10 06:32] LABS: CALCIUM 7.8 mg/dL (8.4-10.2); CREATININE, SERUM 1.27 mg/dL (0.57-1.11)
[2022-07-10] MEDS: SODIUM CHLORIDE 0.9% 1000ML 1,000 ML IV SCH (09:26)
[2022-07-10] MEDS: FAMOTIDINE 20 MG TAB PO SCH ×2 (09:27→16:03)
[2022-07-10] MEDS: DOCUSATE SODIUM 100 MG CAP PO SCH ×3 (09:27→21:10)
[2022-07-10] MEDS: CARISOPRODOL 350 MG TAB PO SCH ×3 (09:27→21:12)
[2022-07-10] MEDS: DIAZEPAM 5 MG TAB PO SCH ×2 (09:28→21:10)
[2022-07-10] MEDS: DEXAMETHASONE 4 MG TAB PO SCH (09:28)
[2022-07-10] MEDS: POLYETHYLENE GLYCOL 3350 17 GM PACK PO SCH ×2 (09:29→16:51)
[2022-07-10] MEDS: DIPHENHYDRAMINE HCL 25 MG CAP PO PRN (14:46)
[2022-07-10] MEDS: ONDANSETRON HCL INJ 2MG/ML 2ML 2 MG/ML VIAL IV PRN (18:28)
[2022-07-10] MEDS: OXCARBAZEPINE 300 MG TAB PO SCH (21:10)
[2022-07-11 01:18] VITALS: BP 126/87
[2022-07-11] MEDS: ALPRAZOLAM 0.25 MG TAB PO PRN (01:53)
[2022-07-11] MEDS: HYDROMORPHONE 1MG/1ML INJ IV PRN ×4 (01:54→12:33)
[2022-07-11] MEDS: GABAPENTIN 300 MG CAP PO SCH (05:09)
[2022-07-11] MEDS: LEVOTHYROXINE SODIUM 75 MCG TAB PO SCH (05:09)
[2022-07-11 05:17] VITALS: BP 117/86
[2022-07-11 05:40] LABS: BASOPHILS # (AUTO) 0.1 (0.0-0.1); BASOPHILS % 0.5 % (0.0-1.0); EOSINOPHILS # (AUTO) 0.2 (0.0-0.4); EOSINOPHILS % 1.8 % (0.0-6.0); HEMATOCRIT 31.6 % (34.2-44.1); HEMOGLOBIN 10.7 g/dL (12.0-16.0); LYMPHOCYTES % 27.3 % (18.0-39.1); MEAN CORPUSCULAR HEMOGLOBIN 30.7 pg (28-32); MEAN CORPUSCULAR HGB CONC 33.9 g/dL (31-35); MEAN CORPUSCULAR VOLUME 90.5 fL (81-99); MONOCYTES % 9.3 % (4.4-11.3); NEUTROPHILS # (AUTO) 6.6 (2.1-6.9); NEUTROPHILS % 60.6 % (38.7-80.0); PLATELET COUNT 329 x10e3/uL (140-360); RED BLOOD COUNT 3.49 x10e6/uL (3.6-5.1)
[2022-07-11] MEDS: OXYCODONE HCL 20 MG TAB CR PO PRN (05:52)
[2022-07-11 06:03] LABS: ANION GAP 13.3 mmol/L (8-16); CALCIUM 7.9 mg/dL (8.4-10.2); CREATININE, SERUM 1.24 mg/dL (0.57-1.11); POTASSIUM 4.3 mmol/L (3.5-5.1)
[2022-07-11] MEDS: FAMOTIDINE 20 MG TAB PO SCH (07:30)
[2022-07-11 08:00] VITALS: BP 117/86
[2022-07-11 08:04] VITALS: BP 117/75
[2022-07-11] MEDS: ONDANSETRON HCL INJ 2MG/ML 2ML 2 MG/ML VIAL IV PRN (09:00)
[2022-07-11] MEDS: POLYETHYLENE GLYCOL 3350 17 GM PACK PO SCH (09:00)
[2022-07-11] MEDS: DEXAMETHASONE 4 MG TAB PO SCH (09:00)
[2022-07-11] MEDS: CARISOPRODOL 350 MG TAB PO SCH (09:00)
[2022-07-11] MEDS: DOCUSATE SODIUM 100 MG CAP PO SCH (09:00)
[2022-07-11] MEDS: DIAZEPAM 5 MG TAB PO SCH (09:00)
[2022-07-11 11:45] VITALS: BP 106/86
== END 2022-07-11 15:50 | disposition home or self-care (01) | DRG 545 ==
LOC: ER 17:30 → ERHOLD 19:56 → INTOOBSV 19:56 → MED/SURG2 20:47 → OBSVTOIN 07-09 11:10
PROVIDERS: ADMIT Internal Medicine; ATTEND Internal Medicine
DX: M05.562 Rheumatoid polyneuropathy with rheumatoid arthritis of left knee (principal); G93.5 Compression of brain; N17.9 Acute kidney failure, unspecified; E23.6 Other disorders of pituitary gland; M05 Rheumatoid arthritis with rheumatoid factor; E88.09 Other disorders of plasma-protein metabolism, not elsewhere classified; I10 Essential (primary) hypertension; E03.9 Hypothyroidism, unspecified; D64.9 Anemia, unspecified; G89.4 Chronic pain syndrome; E86.0 Dehydration; F41.9 Anxiety disorder, unspecified; R55 Syncope and collapse; G47.00 Insomnia, unspecified; M46.92 Unspecified inflammatory spondylopathy, cervical region; M21.372 Foot drop, left foot; M79.7 Fibromyalgia; E83.42 Hypomagnesemia; K58.9 Irritable bowel syndrome, unspecified; M51.26 Other intervertebral disc displacement, lumbar region; M21.371 Foot drop, right foot; Z20.822 Contact with and (suspected) exposure to COVID-19; Z80.1 Family history of malignant neoplasm of trachea, bronchus and lung; Z72.0 Tobacco use; Z80.8 Family history of malignant neoplasm of other organs or systems; Z80.3 Family history of malignant neoplasm of breast; Z90.49 Acquired absence of other specified parts of digestive tract; Z98.84 Bariatric surgery status; Z88.5 Allergy status to narcotic agent; Z88.8 Allergy status to other drugs, medicaments and biological substances; Z79.52 Long term (current) use of systemic steroids
CPT/HCPCS: 36415; 70450; 71045; 72125; 72128; 72131; 80048; 80053; 81001; 81025; 83735; 83880; 84100; 85025; 93925; 93970; 94799; 99284; G0378; J1170; J2270; J2405; J7030

== ENCOUNTER 2022-08-02 18:23 | Emergency (ER) | payer OTHER ==
[~2022-08-02] VITALS: Ht 309.9 cm; Wt 79.4 kg
[~2022-08-02 18:23] MED LIST changes: +OXYCODONE HCL20 M1 PO; +TIZANIDINE HCL4 M1 PO; +ZOLPIDEM TART12.5 MG PO
[2022-08-02 19:06] LABS: BASOPHILS # (AUTO) 0.1 (0.0-0.1); BASOPHILS % 0.6 % (0.0-1.0); EOSINOPHILS # (AUTO) 0.5 (0.0-0.4); EOSINOPHILS % 6.1 % (0.0-6.0); HEMATOCRIT 34.6 % (34.2-44.1); HEMOGLOBIN 11.2 g/dL (12.0-16.0); LYMPHOCYTES # (AUTO) 2.6 (1.0-3.2); LYMPHOCYTES % 33.2 % (18.0-39.1); MEAN CORPUSCULAR HEMOGLOBIN 30.9 pg (28-32); MEAN CORPUSCULAR HGB CONC 32.4 g/dL (31-35); MEAN CORPUSCULAR VOLUME 95.3 fL (81-99); MONOCYTES # (AUTO) 0.6 (0.2-0.8); MONOCYTES % 7.5 % (4.4-11.3); NEUTROPHILS # (AUTO) 4.1 (2.1-6.9); NEUTROPHILS % 52.5 % (38.7-80.0); PLATELET COUNT 308 x10e3/uL (140-360); RED BLOOD COUNT 3.63 x10e6/uL (3.6-5.1); RED CELL DISTRIBUTION WIDTH 14.6 % (11.7-14.4)
[2022-08-02 19:24] LABS: ALBUMIN 3.7 g/dL (3.5-5.0); ALBUMIN/GLOBULIN RATIO 1.3 (0.8-2.0); ANION GAP 16.2 mmol/L (8-16); CALCIUM 8.9 mg/dL (8.4-10.2); CREATININE, SERUM 0.87 mg/dL (0.57-1.11); POTASSIUM 4.2 mmol/L (3.5-5.1)
[2022-08-02 19:25] LABS: CREATINE KINASE 183 IU/L (29-168)
[2022-08-02 19:30] LABS: CLARITY,URINE CLOUDY (CLEAR); COLOR,URINE YELLOW (YELLOW); LEUKOCYTE ESTERASE ,URINE NEGATIVE (NEGATIVE); NITRITE,URINE NEGATIVE (NEGATIVE); PROTEIN,URINE DIPSTICK NEGATIVE (NEGATIVE)
[2022-08-02 19:31] LABS: KETONES,URINE NEGATIVE (NEGATIVE); URINE UROBILINOGEN 0.2 mg/dL (0.2 - 1)
[2022-08-02 19:33] LABS: BACTERIA,URINE MANY /HPF; EPITHELIAL CELLS,URINE MANY /LPF; RBC,URINE 0-5 /HPF (0-5)
[2022-08-02] MEDS ORDERED: CEFDINIR300 MG PO (20:39)
== END 2022-08-02 21:00 | disposition home or self-care (01) ==
LOC: ER 18:30
DX: R60.9 Edema, unspecified (principal); G89.29 Other chronic pain; I10 Essential (primary) hypertension; M06.9 Rheumatoid arthritis, unspecified; M79.7 Fibromyalgia; E03.9 Hypothyroidism, unspecified; D64.9 Anemia, unspecified; Z98.84 Bariatric surgery status; Z20.822 Contact with and (suspected) exposure to COVID-19
CPT/HCPCS: 0223U; 36415; 71045; 80053; 81001; 82550; 82553; 83880; 84484; 84702; 85025; 99284; J0696

== ENCOUNTER 2022-08-05 18:30 | Inpatient (IN) | payer OTHER ==
[~2022-08-05] VITALS: Ht 157.5 cm; Wt 69.4 kg
[2022-08-05] MEDS ORDERED: SODIUM CHLORIDE 0.9% 1000ML 1,000 ML IV ONE (19:15)
[2022-08-05] MEDS ORDERED: ALBUTEROL/IPRATROPIUM 3 ML NEB NEB ONE (19:15)
[2022-08-05] MEDS ORDERED: METHYLPREDNISOLONE SOD SUCC 125 MG/2ML VIAL IV ONE (19:15)
[2022-08-05 19:35] LABS: BASOPHILS # (AUTO) 0.1 (0.0-0.1); BASOPHILS % 0.8 % (0.0-1.0); EOSINOPHILS # (AUTO) 0.3 (0.0-0.4); EOSINOPHILS % 3.3 % (0.0-6.0); HEMATOCRIT 37.1 % (34.2-44.1); LYMPHOCYTES # (AUTO) 1.6 (1.0-3.2); LYMPHOCYTES % 16.2 % (18.0-39.1); MEAN CORPUSCULAR HEMOGLOBIN 31.1 pg (28-32); MEAN CORPUSCULAR HGB CONC 32.3 g/dL (31-35); MEAN CORPUSCULAR VOLUME 96.1 fL (81-99); MONOCYTES # (AUTO) 0.7 (0.2-0.8); MONOCYTES % 6.9 % (4.4-11.3); NEUTROPHILS # (AUTO) 7.1 (2.1-6.9); NEUTROPHILS % 72.6 % (38.7-80.0); PLATELET COUNT 355 x10e3/uL (140-360); RED BLOOD COUNT 3.86 x10e6/uL (3.6-5.1); RED CELL DISTRIBUTION WIDTH 14.4 % (11.7-14.4)
[2022-08-05 19:52] LABS: ALANINE AMINOTRANSFERASE 26 IU/L (0-55); ALBUMIN 3.8 g/dL (3.5-5.0); ALBUMIN/GLOBULIN RATIO 1.2 (0.8-2.0); ALKALINE PHOSPHATASE 93 IU/L (40-150); ANION GAP 13.7 mmol/L (8-16); BLOOD UREA NITROGEN 14 mg/dL (7-26); BUN/CREATININE RATIO 17 (6-25); CARBON DIOXIDE 25 mmol/L (22-29); CHLORIDE 108 mmol/L (98-107); CREATININE, SERUM 0.84 mg/dL (0.57-1.11); GLUCOSE 94 mg/dL (74-118); POTASSIUM 4.7 mmol/L (3.5-5.1); SODIUM 142 mmol/L (136-145)
[2022-08-05] MEDS: ONDANSETRON HCL INJ 2MG/ML 2ML 2 MG/ML VIAL IV PRN (19:55)
[2022-08-05] MEDS: Morphine 4mg INJECTION 4 MG/ML INJ IV PRN (19:55)
[2022-08-05 20:22] LABS: CLARITY,URINE CLEAR (CLEAR); COLOR,URINE YELLOW (YELLOW); KETONES,URINE NEGATIVE (NEGATIVE); LEUKOCYTE ESTERASE ,URINE NEGATIVE (NEGATIVE); NITRITE,URINE NEGATIVE (NEGATIVE); PROTEIN,URINE DIPSTICK NEGATIVE (NEGATIVE); URINE UROBILINOGEN 0.2 mg/dL (0.2 - 1)
[2022-08-05 20:33] LABS: BACTERIA,URINE FEW /HPF; EPITHELIAL CELLS,URINE MODERATE /LPF; RBC,URINE 0-5 /HPF (0-5); WBC,URINE (MAN) 0-5 /HPF (0-5)
[2022-08-05] MEDS ORDERED: Morphine 4mg INJECTION 4 MG/ML INJ IV ONE (21:15)
[2022-08-05] MEDS ORDERED: Morphine 4mg INJECTION 4 MG/ML INJ IV PRN (21:15)
[2022-08-05] MEDS ORDERED: ONDANSETRON HCL INJ 2MG/ML 2ML 2 MG/ML VIAL IV PRN (21:15)
[2022-08-05] MEDS: SODIUM CHLORIDE 0.9% 1000ML 1,000 ML IV SCH (21:57)
[2022-08-05 23:10] VITALS: BP 101/66
[2022-08-06] VITALS (9 sets, daily range): BP systolic 101–199; BP diastolic 59–95
[2022-08-06] MEDS ORDERED: ONDANSETRON HCL 4 MG ORAL DISINTEGRATING TAB PO PRN (01:30)
[2022-08-06] MEDS ORDERED: ACETAMINOPHEN 325 MG TAB PO PRN (01:30)
[2022-08-06] MEDS ORDERED: POLYETHYLENE GLYCOL 3350 17 GM PACK PO PRN ×2 (01:30→13:15)
[2022-08-06] MEDS ORDERED: FUROSEMIDE 40 MG TAB PO PRN (01:30)
[2022-08-06] MEDS ORDERED: OXYCODONE HCL 10 MG TAB CR PO PRN (02:45)
[2022-08-06] MEDS: Morphine 4mg INJECTION 4 MG/ML INJ IV PRN ×3 (03:05→11:36)
[2022-08-06] MEDS: CARISOPRODOL 350 MG TAB PO SCH ×3 (04:31→19:57)
[2022-08-06 05:47] LABS: BASOPHILS % 0.2 % (0.0-1.0); HEMOGLOBIN 10.3 g/dL (12.0-16.0); MEAN CORPUSCULAR HGB CONC 32.2 g/dL (31-35); MEAN CORPUSCULAR VOLUME 96.4 fL (81-99); MONOCYTES # (AUTO) 0.2 (0.2-0.8); MONOCYTES % 1.6 % (4.4-11.3); NEUTROPHILS % 87.9 % (38.7-80.0); PLATELET COUNT 279 x10e3/uL (140-360); RED BLOOD COUNT 3.32 x10e6/uL (3.6-5.1); RED CELL DISTRIBUTION WIDTH 14.2 % (11.7-14.4)
[2022-08-06] MEDS ORDERED: CARISOPRODOL 350 MG TAB PO SCH (06:00)
[2022-08-06] MEDS: SODIUM CHLORIDE 0.9% 1000ML 1,000 ML IV SCH ×2 (06:05→16:33)
[2022-08-06 06:21] LABS: ANION GAP 14.4 mmol/L (8-16); CREATININE, SERUM 0.75 mg/dL (0.57-1.11); POTASSIUM 4.4 mmol/L (3.5-5.1)
[2022-08-06] MEDS: GABAPENTIN 300 MG CAP PO SCH ×3 (06:28→22:05)
[2022-08-06] MEDS: ALPRAZOLAM 0.25 MG TAB PO PRN (06:28)
[2022-08-06] MEDS: TIZANIDINE HCL 4 MG TAB PO SCH ×3 (06:29→22:04)
[2022-08-06] MEDS: LEVOTHYROXINE SODIUM 75 MCG TAB PO SCH (06:29)
[2022-08-06] MEDS: DIAZEPAM 5 MG TAB PO SCH ×2 (08:07→16:32)
[2022-08-06] MEDS: DEXAMETHASONE 4 MG TAB PO SCH (08:07)
[2022-08-06] MEDS ORDERED: CEFDINIR 300 MG CAP PO SCH (09:00)
[2022-08-06] MEDS: ONDANSETRON HCL INJ 2MG/ML 2ML 2 MG/ML VIAL IV PRN (11:35)
[2022-08-06] MEDS ORDERED: HYDRALAZINE HCL 20 MG/ML VIAL IV PRN (13:15)
[2022-08-06] MEDS ORDERED: OXYCODONE HCL IR 5 MG TAB PO PRN (14:00)
[2022-08-06] MEDS: DOCUSATE SODIUM 100 MG CAP PO SCH (16:32)
[2022-08-06] MEDS: HYDROMORPHONE 1MG/1ML INJ IV PRN ×2 (16:33→20:35)
[2022-08-06] MEDS: FAMOTIDINE 20 MG TAB PO SCH (16:33)
[2022-08-06 17:44] LABS: FERRITIN 501.29 ng/mL (4.63-204.00)
[2022-08-06] MEDS: OXYCODONE/ACETAMINOPHEN 5-325 1 EACH TABLET PO PRN ×2 (18:36→22:58)
[2022-08-06] MEDS: OXCARBAZEPINE 300 MG TAB PO SCH (20:36)
[2022-08-06] MEDS ORDERED: ZOLPIDEM TARTRATE 12.5 MG PO SCH (21:00)
[2022-08-07] VITALS (9 sets, daily range): BP systolic 120–146; BP diastolic 70–99
[2022-08-07] MEDS: HYDROMORPHONE 1MG/1ML INJ IV PRN ×4 (01:15→20:49)
[2022-08-07] MEDS: ZOLPIDEM TARTRATE 10 MG TAB PO PRN (02:13)
[2022-08-07] MEDS: SODIUM CHLORIDE 0.9% 1000ML 1,000 ML IV SCH ×2 (02:37→15:57)
[2022-08-07] MEDS: CARISOPRODOL 350 MG TAB PO SCH ×3 (04:00→20:48)
[2022-08-07 06:05] LABS: BASOPHILS # (AUTO) 0.1 (0.0-0.1); BASOPHILS % 0.5 % (0.0-1.0); EOSINOPHILS # (AUTO) 0.2 (0.0-0.4); EOSINOPHILS % 1.6 % (0.0-6.0); HEMATOCRIT 34.1 % (34.2-44.1); HEMOGLOBIN 10.9 g/dL (12.0-16.0); LYMPHOCYTES # (AUTO) 3.4 (1.0-3.2); LYMPHOCYTES % 26.4 % (18.0-39.1); MEAN CORPUSCULAR HEMOGLOBIN 31.2 pg (28-32); MEAN CORPUSCULAR VOLUME 97.7 fL (81-99); MONOCYTES # (AUTO) 0.7 (0.2-0.8); MONOCYTES % 5.5 % (4.4-11.3); NEUTROPHILS # (AUTO) 8.6 (2.1-6.9); NEUTROPHILS % 65.7 % (38.7-80.0); PLATELET COUNT 311 x10e3/uL (140-360); RED BLOOD COUNT 3.49 x10e6/uL (3.6-5.1); RED CELL DISTRIBUTION WIDTH 14.3 % (11.7-14.4)
[2022-08-07 06:37] LABS: ANION GAP 14.3 mmol/L (8-16); CREATININE, SERUM 0.78 mg/dL (0.57-1.11); MAGNESIUM 1.8 MG/DL (1.3-2.1); PHOSPHORUS 3.7 MG/DL (2.3-4.7); POTASSIUM 4.3 mmol/L (3.5-5.1)
[2022-08-07] MEDS: GABAPENTIN 300 MG CAP PO SCH ×3 (06:52→22:56)
[2022-08-07] MEDS: LEVOTHYROXINE SODIUM 75 MCG TAB PO SCH (06:52)
[2022-08-07] MEDS: TIZANIDINE HCL 4 MG TAB PO SCH ×3 (06:53→22:56)
[2022-08-07] MEDS: FAMOTIDINE 20 MG TAB PO SCH ×2 (08:10→17:30)
[2022-08-07] MEDS: DIAZEPAM 5 MG TAB PO SCH ×2 (08:25→17:30)
[2022-08-07] MEDS: DEXAMETHASONE 4 MG TAB PO SCH (08:25)
[2022-08-07] MEDS: DOCUSATE SODIUM 100 MG CAP PO SCH ×2 (08:25→17:30)
[2022-08-07] MEDS: AZITHROMYCIN 250 MG TAB PO SCH (08:25)
[2022-08-07] MEDS: ALPRAZOLAM 0.25 MG TAB PO PRN (08:25)
[2022-08-07] MEDS: OXCARBAZEPINE 300 MG TAB PO SCH (20:49)
[2022-08-07] MEDS: OXYCODONE/ACETAMINOPHEN 5-325 1 EACH TABLET PO PRN (23:26)
[2022-08-08] VITALS (8 sets, daily range): BP systolic 111–149; BP diastolic 73–96
[2022-08-08] MEDS: ZOLPIDEM TARTRATE 10 MG TAB PO PRN (01:43)
[2022-08-08] MEDS: HYDROMORPHONE 1MG/1ML INJ IV PRN ×5 (01:44→18:51)
[2022-08-08] MEDS: OXYCODONE/ACETAMINOPHEN 5-325 1 EACH TABLET PO PRN ×5 (04:19→21:41)
[2022-08-08] MEDS: CARISOPRODOL 350 MG TAB PO SCH ×3 (04:20→20:17)
[2022-08-08] MEDS: ALPRAZOLAM 0.25 MG TAB PO PRN (04:27)
[2022-08-08] MEDS: SODIUM CHLORIDE 0.9% 1000ML 1,000 ML IV SCH (05:17)
[2022-08-08 06:02] LABS: BASOPHILS # (AUTO) 0.1 (0.0-0.1); BASOPHILS % 0.7 % (0.0-1.0); EOSINOPHILS # (AUTO) 0.2 (0.0-0.4); EOSINOPHILS % 1.3 % (0.0-6.0); HEMATOCRIT 32.3 % (34.2-44.1); HEMOGLOBIN 10.9 g/dL (12.0-16.0); LYMPHOCYTES % 32.7 % (18.0-39.1); MEAN CORPUSCULAR HEMOGLOBIN 31.3 pg (28-32); MEAN CORPUSCULAR HGB CONC 33.7 g/dL (31-35); MEAN CORPUSCULAR VOLUME 92.8 fL (81-99); MONOCYTES # (AUTO) 0.8 (0.2-0.8); MONOCYTES % 6.8 % (4.4-11.3); NEUTROPHILS # (AUTO) 7.1 (2.1-6.9); NEUTROPHILS % 57.8 % (38.7-80.0); PLATELET COUNT 324 x10e3/uL (140-360); RED BLOOD COUNT 3.48 x10e6/uL (3.6-5.1); RED CELL DISTRIBUTION WIDTH 13.8 % (11.7-14.4)
[2022-08-08] MEDS: GABAPENTIN 300 MG CAP PO SCH ×3 (06:16→21:41)
[2022-08-08] MEDS: LEVOTHYROXINE SODIUM 75 MCG TAB PO SCH (06:16)
[2022-08-08] MEDS: TIZANIDINE HCL 4 MG TAB PO SCH ×3 (06:17→21:41)
[2022-08-08 06:39] LABS: ANION GAP 12.9 mmol/L (8-16); CALCIUM 8.3 mg/dL (8.4-10.2); CREATININE, SERUM 0.78 mg/dL (0.57-1.11); POTASSIUM 3.9 mmol/L (3.5-5.1)
[2022-08-08] MEDS: FAMOTIDINE 20 MG TAB PO SCH ×2 (08:46→17:39)
[2022-08-08] MEDS: AZITHROMYCIN 250 MG TAB PO SCH (08:47)
[2022-08-08] MEDS: DEXAMETHASONE 4 MG TAB PO SCH (08:47)
[2022-08-08] MEDS: DOCUSATE SODIUM 100 MG CAP PO SCH ×2 (08:47→17:41)
[2022-08-08] MEDS: DIAZEPAM 5 MG TAB PO SCH ×2 (08:47→17:39)
[2022-08-08] MEDS: FOLIC ACID 1 MG TAB PO SCH (08:47)
[2022-08-08] MEDS ORDERED: FLUCONAZOLE 100 MG TAB PO ONE (17:15)
[2022-08-08 17:46] LABS: BASOPHILS # (AUTO) 0.1 (0.0-0.1); BASOPHILS % 0.5 % (0.0-1.0); EOSINOPHILS % 0.3 % (0.0-6.0); HEMATOCRIT 37.6 % (34.2-44.1); HEMOGLOBIN 12.2 g/dL (12.0-16.0); LYMPHOCYTES % 19.1 % (18.0-39.1); MEAN CORPUSCULAR HEMOGLOBIN 30.8 pg (28-32); MEAN CORPUSCULAR HGB CONC 32.4 g/dL (31-35); MEAN CORPUSCULAR VOLUME 94.9 fL (81-99); MONOCYTES # (AUTO) 0.5 (0.2-0.8); MONOCYTES % 4.4 % (4.4-11.3); NEUTROPHILS # (AUTO) 7.7 (2.1-6.9); NEUTROPHILS % 75.1 % (38.7-80.0); PLATELET COUNT 371 x10e3/uL (140-360); RED BLOOD COUNT 3.96 x10e6/uL (3.6-5.1); RED CELL DISTRIBUTION WIDTH 13.2 % (11.7-14.4)
[2022-08-08] MEDS: OXCARBAZEPINE 300 MG TAB PO SCH (20:17)
[2022-08-09] VITALS (8 sets, daily range): BP systolic 92–131; BP diastolic 59–95
[2022-08-09] MEDS: HYDROMORPHONE 1MG/1ML INJ IV PRN ×5 (01:02→21:43)
[2022-08-09] MEDS: ZOLPIDEM TARTRATE 10 MG TAB PO PRN (01:02)
[2022-08-09] MEDS: HYDROXYZINE HCL 25 MG TAB PO PRN ×2 (01:50→12:13)
[2022-08-09] MEDS: CARISOPRODOL 350 MG TAB PO SCH ×3 (04:00→20:12)
[2022-08-09] MEDS: TIZANIDINE HCL 4 MG TAB PO SCH ×3 (06:00→21:02)
[2022-08-09] MEDS: GABAPENTIN 300 MG CAP PO SCH ×3 (06:00→21:02)
[2022-08-09] MEDS: LEVOTHYROXINE SODIUM 75 MCG TAB PO SCH (06:00)
[2022-08-09] MEDS: DOCUSATE SODIUM 100 MG CAP PO SCH ×2 (08:10→17:05)
[2022-08-09] MEDS: DEXAMETHASONE 4 MG TAB PO SCH (08:11)
[2022-08-09] MEDS: FAMOTIDINE 20 MG TAB PO SCH ×2 (08:11→17:05)
[2022-08-09] MEDS: AZITHROMYCIN 250 MG TAB PO SCH (08:11)
[2022-08-09] MEDS: DIAZEPAM 5 MG TAB PO SCH ×2 (08:11→17:05)
[2022-08-09] MEDS: FOLIC ACID 1 MG TAB PO SCH (08:47)
[2022-08-09] MEDS ORDERED: AMITRIPTYLINE HCL 25 MG TAB PO PRN (09:45)
[2022-08-09] MEDS: OXYCODONE/ACETAMINOPHEN 5-325 1 EACH TABLET PO PRN ×3 (10:22→20:11)
[2022-08-09] MEDS: ONDANSETRON HCL INJ 2MG/ML 2ML 2 MG/ML VIAL IV PRN (14:22)
[2022-08-09] MEDS: OXCARBAZEPINE 300 MG TAB PO SCH (21:01)
[2022-08-10] VITALS (9 sets, daily range): BP systolic 87–136; BP diastolic 48–96
[2022-08-10] MEDS: OXYCODONE/ACETAMINOPHEN 5-325 1 EACH TABLET PO PRN ×3 (00:44→09:32)
[2022-08-10] MEDS: ZOLPIDEM TARTRATE 10 MG TAB PO PRN ×2 (00:45→22:00)
[2022-08-10] MEDS: HYDROMORPHONE 1MG/1ML INJ IV PRN ×5 (01:50→22:36)
[2022-08-10] MEDS: CARISOPRODOL 350 MG TAB PO SCH ×3 (04:40→14:46)
[2022-08-10] MEDS: ALPRAZOLAM 0.25 MG TAB PO PRN (04:41)
[2022-08-10] MEDS: LEVOTHYROXINE SODIUM 75 MCG TAB PO SCH (06:09)
[2022-08-10] MEDS: GABAPENTIN 300 MG CAP PO SCH ×3 (06:10→21:01)
[2022-08-10] MEDS: TIZANIDINE HCL 4 MG TAB PO SCH ×3 (06:10→21:02)
[2022-08-10 06:17] LABS: BASOPHILS # (AUTO) 0.1 (0.0-0.1); BASOPHILS % 0.4 % (0.0-1.0); EOSINOPHILS # (AUTO) 0.2 (0.0-0.4); EOSINOPHILS % 1.3 % (0.0-6.0); HEMOGLOBIN 12.5 g/dL (12.0-16.0); LYMPHOCYTES # (AUTO) 4.8 (1.0-3.2); LYMPHOCYTES % 30.8 % (18.0-39.1); MEAN CORPUSCULAR HEMOGLOBIN 30.9 pg (28-32); MEAN CORPUSCULAR HGB CONC 32.1 g/dL (31-35); MEAN CORPUSCULAR VOLUME 96.5 fL (81-99); MONOCYTES % 6.6 % (4.4-11.3); NEUTROPHILS # (AUTO) 9.5 (2.1-6.9); NEUTROPHILS % 60.2 % (38.7-80.0); PLATELET COUNT 419 x10e3/uL (140-360); RED BLOOD COUNT 4.04 x10e6/uL (3.6-5.1); RED CELL DISTRIBUTION WIDTH 13.4 % (11.7-14.4)
[2022-08-10 06:39] LABS: ALBUMIN 3.7 g/dL (3.5-5.0); ALBUMIN/GLOBULIN RATIO 1.3 (0.8-2.0); ANION GAP 15.1 mmol/L (8-16); CALCIUM 8.8 mg/dL (8.4-10.2); CREATININE, SERUM 0.81 mg/dL (0.57-1.11); POTASSIUM 4.1 mmol/L (3.5-5.1)
[2022-08-10] MEDS: AZITHROMYCIN 250 MG TAB PO SCH (09:00)
[2022-08-10] MEDS: LIDOCAINE 4% PATCH TP SCH (09:00)
[2022-08-10] MEDS: DOCUSATE SODIUM 100 MG CAP PO SCH ×2 (09:00→18:03)
[2022-08-10] MEDS: DIAZEPAM 5 MG TAB PO SCH ×2 (09:29→18:03)
[2022-08-10] MEDS: FOLIC ACID 1 MG TAB PO SCH (09:30)
[2022-08-10] MEDS: FAMOTIDINE 20 MG TAB PO SCH ×2 (09:30→16:30)
[2022-08-10] MEDS: DEXAMETHASONE 4 MG TAB PO SCH (09:31)
[2022-08-10] MEDS: ALBUTEROL/IPRATROPIUM 3 ML NEB NEB SCH ×2 (13:00→19:46)
[2022-08-10] MEDS: ENOXAPARIN SOD INJ 40 MG/0.4 ML SYR SC SCH (17:00)
[2022-08-10] MEDS: OXCARBAZEPINE 300 MG TAB PO SCH (21:01)
[2022-08-11] VITALS (7 sets, daily range): BP systolic 89–129; BP diastolic 56–80
[2022-08-11] MEDS: ALBUTEROL/IPRATROPIUM 3 ML NEB NEB SCH ×4 (00:50→19:30)
[2022-08-11] MEDS: OXYCODONE/ACETAMINOPHEN 5-325 1 EACH TABLET PO PRN ×4 (01:28→23:31)
[2022-08-11] MEDS: HYDROMORPHONE 1MG/1ML INJ IV PRN ×5 (02:33→20:46)
[2022-08-11] MEDS: CARISOPRODOL 350 MG TAB PO SCH ×4 (04:22→20:45)
[2022-08-11] MEDS: LEVOTHYROXINE SODIUM 75 MCG TAB PO SCH (05:30)
[2022-08-11] MEDS: TIZANIDINE HCL 4 MG TAB PO SCH ×3 (05:30→20:45)
[2022-08-11] MEDS: GABAPENTIN 300 MG CAP PO SCH ×3 (05:30→20:45)
[2022-08-11] MEDS: FAMOTIDINE 20 MG TAB PO SCH ×2 (07:39→16:41)
[2022-08-11] MEDS: DIAZEPAM 5 MG TAB PO SCH ×2 (09:08→16:41)
[2022-08-11] MEDS: DEXAMETHASONE 4 MG TAB PO SCH (09:08)
[2022-08-11] MEDS: FOLIC ACID 1 MG TAB PO SCH (09:08)
[2022-08-11] MEDS: AZITHROMYCIN 250 MG TAB PO SCH (09:08)
[2022-08-11] MEDS: DOCUSATE SODIUM 100 MG CAP PO SCH ×2 (09:08→16:43)
[2022-08-11] MEDS: LIDOCAINE 4% PATCH TP SCH (09:09)
[2022-08-11] MEDS: ONDANSETRON HCL INJ 2MG/ML 2ML 2 MG/ML VIAL IV PRN (10:12)
[2022-08-11] MEDS ORDERED: SODIUM CHLORIDE 0.9% 250ML 250 ML ONE (10:30)
[2022-08-11] MEDS ORDERED: FUROSEMIDE 20 MG TAB PO PRN (11:45)
[2022-08-11] MEDS: MULTIVITAMINS/MINERALS TAB PO SCH (12:09)
[2022-08-11] MEDS: CYANOCOBALAMIN 1,000 MCG TAB PO SCH (12:09)
[2022-08-11] MEDS: ALPRAZOLAM 0.25 MG TAB PO PRN (12:20)
[2022-08-11] MEDS: ENOXAPARIN SOD INJ 40 MG/0.4 ML SYR SC SCH (16:41)
[2022-08-11] MEDS: OXCARBAZEPINE 300 MG TAB PO SCH (20:45)
[2022-08-12 00:51] VITALS: BP 95/50
[2022-08-12] MEDS: ZOLPIDEM TARTRATE 10 MG TAB PO PRN (02:00)
[2022-08-12] MEDS: ALBUTEROL/IPRATROPIUM 3 ML NEB NEB SCH ×3 (02:20→13:02)
[2022-08-12] MEDS: HYDROMORPHONE 1MG/1ML INJ IV PRN ×3 (02:34→12:02)
[2022-08-12] MEDS: CARISOPRODOL 350 MG TAB PO SCH ×2 (02:35→12:01)
[2022-08-12 05:29] VITALS: BP 104/69
[2022-08-12] MEDS: GABAPENTIN 300 MG CAP PO SCH ×2 (05:33→14:55)
[2022-08-12] MEDS: LEVOTHYROXINE SODIUM 75 MCG TAB PO SCH (05:33)
[2022-08-12] MEDS: TIZANIDINE HCL 4 MG TAB PO SCH ×2 (05:34→14:56)
[2022-08-12 05:55] LABS: BASOPHILS # (AUTO) 0.1 (0.0-0.1); BASOPHILS % 0.3 % (0.0-1.0); EOSINOPHILS # (AUTO) 0.2 (0.0-0.4); EOSINOPHILS % 1.4 % (0.0-6.0); HEMATOCRIT 36.8 % (34.2-44.1); HEMOGLOBIN 11.8 g/dL (12.0-16.0); LYMPHOCYTES # (AUTO) 3.9 (1.0-3.2); LYMPHOCYTES % 27.1 % (18.0-39.1); MEAN CORPUSCULAR HEMOGLOBIN 30.8 pg (28-32); MEAN CORPUSCULAR HGB CONC 32.1 g/dL (31-35); MEAN CORPUSCULAR VOLUME 96.1 fL (81-99); MONOCYTES # (AUTO) 1.2 (0.2-0.8); MONOCYTES % 8.5 % (4.4-11.3); NEUTROPHILS # (AUTO) 8.9 (2.1-6.9); NEUTROPHILS % 61.8 % (38.7-80.0); PLATELET COUNT 372 x10e3/uL (140-360); RED BLOOD COUNT 3.83 x10e6/uL (3.6-5.1); RED CELL DISTRIBUTION WIDTH 13.8 % (11.7-14.4)
[2022-08-12 08:40] VITALS: BP 98/55
[2022-08-12] MEDS: FAMOTIDINE 20 MG TAB PO SCH ×2 (09:14→17:02)
[2022-08-12] MEDS: DOCUSATE SODIUM 100 MG CAP PO SCH (09:14)
[2022-08-12] MEDS: FOLIC ACID 1 MG TAB PO SCH (09:14)
[2022-08-12] MEDS: AZITHROMYCIN 250 MG TAB PO SCH (09:14)
[2022-08-12] MEDS: DIAZEPAM 5 MG TAB PO SCH ×2 (09:14→17:02)
[2022-08-12] MEDS: DEXAMETHASONE 4 MG TAB PO SCH (09:15)
[2022-08-12] MEDS: CYANOCOBALAMIN 1,000 MCG TAB PO SCH (09:15)
[2022-08-12] MEDS: MULTIVITAMINS/MINERALS TAB PO SCH (09:15)
[2022-08-12] MEDS: LIDOCAINE 4% PATCH TP SCH (09:19)
[2022-08-12] MEDS: OXYCODONE/ACETAMINOPHEN 5-325 1 EACH TABLET PO PRN ×2 (10:25→14:56)
[2022-08-12 11:07] VITALS: BP 138/55
[2022-08-12] MEDS ORDERED: LIDOCAINE PAIN1 EACH TD (14:16)
[2022-08-12] MEDS ORDERED: MIRALAX17 GM PO (14:16)
[2022-08-12] MEDS ORDERED: FOLIC ACID0.8 MG PO (14:16)
[2022-08-12] MEDS ORDERED: DOCUSATE SODIU100 M1 PO (14:16)
[2022-08-12] MEDS ORDERED: MULTIVITAMINS1 EAC6 PO (14:16)
[2022-08-12] MEDS ORDERED: VITAMIN B-121000 MCG PO (14:16)
[2022-08-12] MEDS ORDERED: FAMOTIDINE20 MG PO (14:16)
[2022-08-12 15:59] VITALS: BP 107/62
[2022-08-12] MEDS: ENOXAPARIN SOD INJ 40 MG/0.4 ML SYR SC SCH (16:50)
== END 2022-08-12 17:54 | disposition home health service (06) | DRG 545 ==
LOC: ER 18:40 → ERHOLD 21:12 → MED/SURG3 22:44 → OBSVTOIN 08-06 15:04 → INTOOBSV 08-06 15:05 → OBSVTOIN 08-06 15:05 → MED/SURG3 08-10 21:02
PROVIDERS: ADMIT Internal Medicine; ATTEND Internal Medicine
DX: M32.19 Other organ or system involvement in systemic lupus erythematosus (principal); G93.5 Compression of brain; J18.9 Pneumonia, unspecified organism; N17.9 Acute kidney failure, unspecified; N39.0 Urinary tract infection, site not specified; F17.210 Nicotine dependence, cigarettes, uncomplicated; D50.9 Iron deficiency anemia, unspecified; G89.4 Chronic pain syndrome; M79.7 Fibromyalgia; M06.9 Rheumatoid arthritis, unspecified; F41.9 Anxiety disorder, unspecified; G47.00 Insomnia, unspecified; M46.92 Unspecified inflammatory spondylopathy, cervical region; I10 Essential (primary) hypertension; G25.81 Restless legs syndrome; E03.9 Hypothyroidism, unspecified; N76.0 Acute vaginitis; Z98.84 Bariatric surgery status; Z87.01 Personal history of pneumonia (recurrent); Z20.822 Contact with and (suspected) exposure to COVID-19; Z80.1 Family history of malignant neoplasm of trachea, bronchus and lung; Z80.3 Family history of malignant neoplasm of breast; Z88.5 Allergy status to narcotic agent; Z88.8 Allergy status to other drugs, medicaments and biological substances; Z83.3 Family history of diabetes mellitus; Z82.3 Family history of stroke; Z82.49 Family history of ischemic heart disease and other diseases of the circulatory system; Z84.89 Family history of other specified conditions; Z79.52 Long term (current) use of systemic steroids
CPT/HCPCS: 0223U; 36415; 71045; 71046; 80048; 80053; 81001; 82607; 82728; 82746; 83540; 83605; 83735; 84100; 84466; 84484; 84702; 85025; 85045; 87040; 87086; 87400; 93005; 93306; 93970; 94799; 96361; 99284; G0378; J0456; J0696; J1170; J1650; J2270; J2405; J2930; J3410; J7030; J7050; Q0162

== ENCOUNTER 2022-08-31 21:11 | Emergency (ER) | payer OTHER ==
[~2022-08-31] VITALS: Ht 157.5 cm; Wt 69.4 kg
[~2022-08-31 21:11] MED LIST changes: +DOCUSATE SODIU100 M1 PO; +FAMOTIDINE20 MG PO; +FOLIC ACID0.8 MG PO; +LIDOCAINE PAIN1 EACH TD; +MULTIVITAMINS1 EAC6 PO
[2022-08-31] MEDS ORDERED: SODIUM CHLORIDE FLUSH 10 ML SYR IV PRN (22:15)
[2022-08-31] MEDS ORDERED: ASPIRIN 325 MG TAB PO ONE ×2 (22:15)
[2022-08-31] MEDS ORDERED: Morphine 4mg INJECTION 4 MG/ML INJ IV PRN (22:15)
[2022-08-31] MEDS ORDERED: ONDANSETRON HCL INJ 2MG/ML 2ML 2 MG/ML VIAL IV PRN (22:15)
[2022-08-31] MEDS ORDERED: ASPIRIN 325 MG TAB ONE (22:36)
[2022-08-31 22:37] LABS: AMPHETAMINES SCREEN,URINE NEGATIVE (NEGATIVE); BASOPHILS # (AUTO) 0.1 (0.0-0.1); BASOPHILS % 0.6 % (0.0-1.0); EOSINOPHILS # (AUTO) 0.7 (0.0-0.4); EOSINOPHILS % 6.5 % (0.0-6.0); HEMATOCRIT 39.5 % (34.2-44.1); HEMOGLOBIN 12.8 g/dL (12.0-16.0); LYMPHOCYTES # (AUTO) 2.5 (1.0-3.2); LYMPHOCYTES % 24.8 % (18.0-39.1); MEAN CORPUSCULAR HEMOGLOBIN 31.7 pg (28-32); MEAN CORPUSCULAR HGB CONC 32.4 g/dL (31-35); MEAN CORPUSCULAR VOLUME 97.8 fL (81-99); MONOCYTES # (AUTO) 0.8 (0.2-0.8); MONOCYTES % 7.4 % (4.4-11.3); NEUTROPHILS # (AUTO) 6.2 (2.1-6.9); NEUTROPHILS % 60.3 % (38.7-80.0); PHENCYCLIDINE SCREEN,URINE NEGATIVE (NEGATIVE); PLATELET COUNT 369 x10e3/uL (140-360); RED BLOOD COUNT 4.04 x10e6/uL (3.6-5.1); RED CELL DISTRIBUTION WIDTH 13.7 % (11.7-14.4)
[2022-08-31 22:38] LABS: BENZODIAZEPINES SCREEN,URINE POSITIVE (NEGATIVE)
[2022-08-31 22:39] LABS: CLARITY,URINE CLOUDY (CLEAR); COLOR,URINE YELLOW (YELLOW); KETONES,URINE TRACE (NEGATIVE); LEUKOCYTE ESTERASE ,URINE NEGATIVE (NEGATIVE); NITRITE,URINE NEGATIVE (NEGATIVE); PROTEIN,URINE DIPSTICK NEGATIVE (NEGATIVE); URINE UROBILINOGEN 0.2 mg/dL (0.2 - 1)
[2022-08-31 22:47] LABS: INR 0.95; PROTHROMBIN TIME 13.5 seconds (11.9-14.5)
[2022-08-31 22:48] LABS: PARTIAL THROMBOPLASTIN TIME 31.2 seconds (23.8-35.5)
[2022-08-31 22:54] LABS: BACTERIA,URINE MANY /HPF; CALCIUM CARBONATE CRYSTALS,UR MANY; EPITHELIAL CELLS,URINE MANY /LPF
[2022-08-31 22:57] LABS: ALBUMIN 3.9 g/dL (3.5-5.0); ALBUMIN/GLOBULIN RATIO 1.2 (0.8-2.0); ANION GAP 14.8 mmol/L (8-16); CALCIUM 8.6 mg/dL (8.4-10.2); CREATININE, SERUM 0.8 mg/dL (0.57-1.11); POTASSIUM 3.8 mmol/L (3.5-5.1)
[2022-09-01 00:48] VITALS: BP 106/68
[2022-09-01] MEDS ORDERED: MACROBID 100 M100 MG PO (00:48)
== END 2022-09-01 00:57 | disposition home or self-care (01) ==
LOC: ER 21:21
DX: R07.89 Other chest pain (principal); N30.90 Cystitis, unspecified without hematuria; M25.59 Pain in other specified joint; M06.9 Rheumatoid arthritis, unspecified; E03.9 Hypothyroidism, unspecified; M32.9 Systemic lupus erythematosus, unspecified; F41.9 Anxiety disorder, unspecified; Z98.84 Bariatric surgery status
CPT/HCPCS: 36415; 71045; 80053; 80307; 81001; 84484; 84702; 85025; 85610; 85730; 93005; 94760; 99284; J2270; J2405